=== PATIENT | male | born 1945 | race Caucasian/White ===

== ENCOUNTER 2017-07-29 05:33 | Inpatient (IN) | payer MEDICARE, BC ==
[2017-07-29] VITALS (18 sets, daily range): BP systolic 93–134; BP diastolic 55–92; PULSE 68–95; RESP 9–18; Ht 182.9 cm; Wt 94.6 kg
[~2017-07-29] VITALS: Ht 182.9 cm; Wt 94.6 kg
[~2017-07-29 05:33] MED LIST: ANTARA; DIAZ5TAB4; EZET10TA3; GABA600T; HYDR4TAB; METF500T4
[2017-07-29] MEDS ORDERED: BUPIVACAINE 0.5%/EPI (SDV) 30 ML INJ ONE (06:38)
[2017-07-29] MEDS ORDERED: SURGIFOAM POWDER 1 GM KIT ONE (06:38)
[2017-07-29] MEDS ORDERED: BUPIVACAINE 0.25% (MPF) 30 ML INJ ONE ×2 (06:38→10:47)
[2017-07-29] MEDS ORDERED: CA CHLORIDE 10% 10 ML SYRINGE ONE (06:39)
[2017-07-29] MEDS ORDERED: HEPARIN 1000 UNITS/ML 10 ML INJ ONE (06:39)
[2017-07-29] MEDS ORDERED: ROCURONIUM 50 MG INJ ONE (07:00)
--- NOTE | 2017-07-29 07:02 | HPN ---
Date/Time of Note Date/Time of Note DATE: 07/29/17 TIME: 07:01 Interval H&P Admission Note Pt. seen H&P reviewed: No system changes AUBRIE TINEO PA-C Jul 29, 2017 07:02
[2017-07-29] MEDS ORDERED: PROPOFOL 20 ML ONE (07:05)
[2017-07-29] MEDS ORDERED: MIDAZOLAM 1 MG/ML 2 ML INJ ONE (07:05)
[2017-07-29] MEDS ORDERED: LIDOCAINE 1% (MDV) 20 ML INJ ONE (07:08)
[2017-07-29] MEDS ORDERED: CEFAZOLIN 1 GM INJ ONE ×2 (07:11→07:42)
[2017-07-29] MEDS ORDERED: DIAZ10TA4 PO (07:15)
[2017-07-29] MEDS ORDERED: LYRI100 PO (07:16)
[2017-07-29] MEDS ORDERED: ASPI-664 PO (07:17)
[2017-07-29] MEDS ORDERED: FENO90CA PO (07:19)
[2017-07-29] MEDS ORDERED: AL HYDROX/MG HYDROX/SIMETH 30 ML CUP PO PRN (07:30)
[2017-07-29] MEDS ORDERED: ONDANSETRON 4 MG INJ IV PRN ×2 (07:30→12:00)
[2017-07-29] MEDS ORDERED: ZOLPIDEM 5 MG TAB PO PRN (07:30)
[2017-07-29] MEDS: CEFAZOLIN 1 GM/50 ML (PMX) 50 ML IVPB SCH ×2 (07:30→15:44)
[2017-07-29] MEDS ORDERED: CEPASTAT LOZENGE MT PRN (07:30)
[2017-07-29] MEDS ORDERED: DIPHENHYDRAMINE 50 MG INJ IV PRN (07:30)
[2017-07-29] MEDS ORDERED: NALOXONE (0.4 MG/ML) INJ IV PRN (07:30)
[2017-07-29] MEDS: THROMBIN 5000 UNIT VIAL ONE ×3 (08:02→10:06)
[2017-07-29] MEDS ORDERED: ONDANSETRON 4 MG INJ ONE ×2 (08:22→11:44)
[2017-07-29] MEDS ORDERED: FAMOTIDINE 20 MG INJ ONE (08:23)
--- NOTE | 2017-07-29 08:37 | RADRPT ---
PROCEDURE: XR lumbar spine CLINICAL INDICATION: Lumbar L2, S1 decompression TECHNIQUE: Single cross-table lateral spine obtained COMPARISON: None available FINDINGS: There are needles posteriorly at the L3, S1 levels. There is preservation of the lumbar lordosis. Ve rtebral bodies are grossly maintained in height. There are anterior osteophytes and disc space narro wing at L5-S1 with facet arthropathy seen at this level. IMPRESSION: Posterior needle localization at L3, S1. Lower lumbar spondylosis/degenerative enthesopathy seen at L5-S1. RPTAT: VV .Sekou Rodriguez MD, MD Date Time Electronically viewed and signed by .Sekou Rodriguez MD, on 07/29/2017 08:37 .O/
--- NOTE | 2017-07-29 08:43 | RADRPT ---
PROCEDURE: XR lumbar spine CLINICAL INDICATION: Lumbar L2, S1 decompression TECHNIQUE: Single cross-table lateral spine obtained COMPARISON: 07/29/2017 FINDINGS: There are now instruments posteriorly spanning the L3 through L5-S1 levels. Anterior osteophytes and disc space narrowing are redemonstrated at L5-S1 with facet arthropathy seen at this level. IMPRESSION: Interval posterior instrumentation at the L3 through L5-S1 levels. RPTAT: VV .Sekou Rodriguez MD, MD Date Time Electronically viewed and signed by .Sekou Rodriguez MD, on 07/29/2017 08:43 .O/
[2017-07-29] MEDS ORDERED: GELATIN SIZE 100 SPONGE ONE (09:54)
[2017-07-29] MEDS ORDERED: THROMBIN 5000 UNIT VIAL ONE (09:56)
[2017-07-29] MEDS ORDERED: FENTAnyl 50 MCG/ML VIAL ONE (10:47)
[2017-07-29] MEDS ORDERED: SUGAMMADEX SODIUM 200 MG/2 ML VIAL IV ONE (11:16)
--- NOTE | 2017-07-29 11:30 | SIPON ---
Date/Time of Note Date/Time of Note DATE: 07/29/17 TIME: 11:25 Operative Report Preoperative Diagnosis Cervical stenosis Postoperative Diagnosis Cervical stenosis Operation/Procedure Performed Cervical decompression Surgeon see signature line salon shampoo assistant Lore De Luna Anesthesia: general Estimated blood loss: 250 - 300 ml's Transfusion Required none Specimen spinous process Grafts/Implants none Complications none EVELINA SUTTON MD Jul 29, 2017 11:30
[2017-07-29] MEDS ORDERED: METOCLOPRAMIDE 10 MG INJ ONE (11:45)
[2017-07-29] MEDS: DOCUSATE SODIUM 100 MG CAP PO SCH ×2 (12:00→22:46)
[2017-07-29] MEDS: PREGABALIN 100 MG CAP PO SCH ×3 (12:00→22:46)
[2017-07-29] MEDS ORDERED: MEPERIDINE 25 MG INJ IV PRN (12:00)
[2017-07-29] MEDS ORDERED: hydrALAzine 20 MG INJ IV PRN (12:00)
[2017-07-29] MEDS ORDERED: PROCHLORPERAZINE 10 MG INJ IV PRN (12:00)
--- NOTE | 2017-07-29 12:02 | OPR ---
DATE OF OPERATION: 07/29/2017 PREOPERATIVE DIAGNOSIS: Lumbar spinal stenosis. POSTOPERATIVE DIAGNOSIS: Lumbar spinal stenosis. OPERATION PERFORMED: 1. Central decompressive laminectomy at L2 to 3, L3 to 4, L4 to 5 and L5 to S1 with decompression of L2, L3, L4, L5 and S1 nerve roots bilaterally. 2. Lateral localizing film x2. 3. Intraoperative neuromonitoring (3.5 hours). 4. Epidural injection via catheter. PRIMARY SURGEON: Mk Miranda MD. DRUG DEPARTMENT WORKER: Lore De Luna PA-C. NEED FOR OIL EXPERT: During this spinal surgical procedure, my dental assistant instructor was used to retract and protect the spinal nerves and dural sac. My dental assistant instructor also employed the suction catheters to evacuate blood from the surgical field to improve visualization of the neural structures. The dental assistant instructor was medically necessary to facilitate the completion of the surgery in a safe and expeditious manner. [facility] regulations, as well as hospital bylaws, preclude the use of non-licensed health care personnel, such as operating room technicians, to perform these functions. FINDINGS: Neuromonitoring at the start of the case revealed left L2 amplitude down 40%, right L2 amplitude down 20%, left L3 down 60%, right L3 down 20%, left L4 amplitude down 30%, right L4 normal, left L5 normal, right L5 down 30%, left S1 down 40%, right S1 normal. At the end of the case all nerve signals returned to normal. The patient had stenosis from L2 to the sacrum. The patient has facet disease most pronounced at L4 to 5. ESTIMATED BLOOD LOSS: 250 with 125 mL returned via Cell Saver. DRAINS: One. SPECIMENS: Spinous process. COMPLICATIONS OF PROCEDURES: None. ANESTHESIOLOGIST: Jaret Flood DO. TYPE OF ANESTHESIA: General. INDICATIONS FOR PROCEDURE: This 71-year-old gentleman with lumbosacral radiculopathy in the setting of stenosis from L2 to the sacrum. He failed nonoperative measures, therefore I recommended proceeding with above-mentioned surgery. Preoperatively, we discussed the risks, benefits and alternatives. He understood and wished to proceed. DESCRIPTION OF PROCEDURE IN DETAIL: The patient was identified in the preoperative holding area, given Ancef antibiotic, taken to the operating room, where he was successfully placed under general anesthesia. Neuromonitoring leads were placed, sequential compressive devices were applied. Greenfield catheter was introduced. Arterial line was placed. Neuromonitoring was utilized during the procedure for 3.5 hours to include SSEP, MEP and EMG. This was performed by Jack Erwin. Start time was 8:00 a.m. Closure time was 11:30 a.m. The patient was placed on the operating table in prone position over a Tyson frame. All bony prominences were well padded. The back was prepped and draped in the usual sterile fashion. Sheldon were placed, lateral films obtained to confirm the correct levels. I next injected Marcaine and epinephrine. Incision was then made from L2 to the sacrum. Incision was taken down to dorsal fascia, which was incised with Bovie cautery. I subperiosteally dissected the L2, L3, L4, L5, and S1 lamina bilaterally. I then took a lateral film to confirm the correct levels. Once this was confirmed, a central decompressive laminectomy was performed at L2 to 3, L3 to 4, L4 to 5 and L5 to S1. The central canal was decompressed, the lateral recess was decompressed. I then decompressed the L2, L3, L4, L5 and S1 nerve roots bilaterally for stenosis. Once this was done, I irrigated the wound. Hemostasis was achieved with bipolar cautery and Gelfoam, thrombin, Surgifoam and bone wax. A Valsalva maneuver was performed and there was no leak of CSF. At this point, all nerve signals returned to normal. I placed a subfascial drain. I placed an epidural catheter through which I injected 100 mcg of fentanyl mixed with 2 mL of Marcaine 0.25% preservative-free and the catheter was pulled. PPP and thrombin injected over the dura for hemostatic purposes. I then closed the deep fascia with #1 Stratafix suture. I closed subcutaneous tissue with 2-0 Vicryl stitch. A 4-0 Monocryl closure was then performed. Dermabond and sterile dressings were then applied. The patient was then awakened from anesthesia and taken to recovery room in stable condition. Lap, sponge and instrument counts were correct x2. There were no apparent complications during the procedure. The patient will be admitted to the ICU. He will undergo routine care to include pain control, neurovascular checks, antibiotics and physical therapy. Dictated By: MK JENKINS/DAVID Conf#: [id number] [facility]#: [id number] MTDD
[2017-07-29] MEDS: D5W-0.45 NACL + KCL 20 MEQ 1,000 ML IV SCH ×2 (12:27→17:04)
[2017-07-29] MEDS: HYDROmorphONE 0.5 MG/0.5 ML SYG IV PRN ×3 (12:29→14:42)
[2017-07-29] MEDS: HYDROmorphONE 0.2 MG/ML PCA IV SCH (15:00)
[2017-07-29] MEDS: DIAZEPAM 5 MG TAB PO PRN (16:30)
[2017-07-30] VITALS (18 sets, daily range): BP systolic 91–145; BP diastolic 61–79; PULSE 86–103; RESP 8–20
[2017-07-30] MEDS: DIAZEPAM 5 MG TAB PO PRN ×3 (00:35→23:17)
[2017-07-30] MEDS: CEFAZOLIN 1 GM/50 ML (PMX) 50 ML IVPB SCH (00:35)
[2017-07-30] MEDS: HYDROmorphONE 0.2 MG/ML PCA IV SCH (00:48)
[2017-07-30] MEDS: D5W-0.45 NACL + KCL 20 MEQ 1,000 ML IV SCH ×2 (03:02→09:42)
[2017-07-30 05:48] LABS: BASOPHIL # 0.1 10^3/ul (0.0-0.1); BASOPHILS % 0.9 % (0.0-2.0); EOSINOPHILS # 0.1 10^3/ul (0.0-0.5); EOSINOPHILS % 1.3 % (0.0-7.0); HEMATOCRIT 34.2 % (42.0-52.0); HEMOGLOBIN 11.8 g/dl (14.0-18.0); LYMPHOCYTES # 1.1 10^3/ul (0.8-2.9); LYMPHOCYTES % 12.9 % (15.0-51.0); MEAN CORPUSCULAR HEMOGLOBIN 31.6 pg (29.0-33.0); MEAN CORPUSCULAR HGB CONC 34.5 g/dl (32.0-37.0); MEAN CORPUSCULAR VOLUME 91.7 fl (82.0-101.0); MEAN PLATELET VOLUME 9.8 fl (7.4-10.4); MONOCYTE # 0.6 10^3/ul (0.3-0.9); MONOCYTES % 6.4 % (0.0-11.0); NEUTROPHIL # 6.8 10^3/ul (1.6-7.5); PLATELET COUNT 374 10^3/UL (140-415); RED BLOOD COUNT 3.73 10^6/ul (4.70-6.10); WHITE BLOOD COUNT 8.7 10^3/ul (4.8-10.8)
[2017-07-30 06:40] LABS: CREATININE 0.93 mg/dl (0.61-1.24); MAGNESIUM 1.5 mg/dl (1.7-2.5); POTASSIUM 4.1 mmol/L (3.5-5.1)
--- NOTE | 2017-07-30 08:09 | PN ---
Date/Time of Note Date/Time of Note DATE: 07/30/17 TIME: 08:05 Assessment/Plan Lines/Catheters IV Catheter Type (from Nrsg): Peripheral IV Greenfield in Place (from Nrsg): Yes Assessment/Plan Assessment/Plan POD #1 s/p lumbar decompression respiratory rate was low but sats acceptable and patient now alert - decrease PUBLIC SERVICE DIRECTOR back to 0.2mg dose PT today, ambulate routine care low mag will defer to PMD/Dr. Enriquez to replete will defer to PMD/Dr. Enriquez to transfer to /[facility] when appropriate Subjective 24 Hr Interval Summary c/o LBP Exam/Review of Systems Vital Signs Vitals Vital Signs Date Time Temp Pulse Resp B/P Pulse Ox O2 Delivery O2 Flow Rate FiO2 07/30/17 06:00 93 8 108/75 98 Nasal Cannula 2.0 07/30/17 04:00 98.3 Intake and Output 07/29/17 07/29/17 07/30/17 14:59 22:59 06:59 Intake Total 2325 ml 1730 ml 300 ml Output Total 1120 ml 790 ml 625 ml Balance 1205 ml 940 ml -325 ml Exam Free Text/Dictation AOx3 NVID denies CP, SOB Results Result Diagram: 07/30/17 0415 07/30/17 0415 AUBRIE TINEO PA-C Jul 30, 2017 08:09
[2017-07-30] MEDS: DOCUSATE SODIUM 100 MG CAP PO SCH ×2 (08:17→23:17)
[2017-07-30] MEDS: PREGABALIN 100 MG CAP PO SCH ×3 (08:18→23:17)
[2017-07-30] MEDS: OXYCODONE/ACETAMINOPHEN (10/325) TAB PO PRN ×3 (11:19→23:51)
[2017-07-30] MEDS: ACETAMINOPHEN 325 MG TAB PO PRN ×2 (12:39→23:20)
--- NOTE | 2017-07-30 13:26 | CONS ---
DATE OF ADMISSION: 07/29/2017 DATE OF CONSULTATION: 07/30/2017 POSTOPERATIVE MEDICAL CONSULTATION Thank you very much for allowing me to evaluate this 71-year-old male who underwent lumbar back surg elke yesterday. HISTORICAL EVENTS: As you well know, this patient has had severe pain involving his back and radicu lar left leg pain, and because of conservative therapy that did not allow improvement, this includin g epidurals and physical therapy, he elected to proceed with surgery. In the ICU, he is reasonably comfortable, notes modest back pain, without cough, wheezing, shortness of breath, nausea, vomiting, or abdominal pain. PAST MEDICAL HISTORY: 1. Left and right shoulder surgery, history of pacemaker for a slow heart rate. He states having h ad a treadmill test at least 5 years ago. 2. History of diabetes. 3. Hyperlipidemia. 4. Osteoarthritis. 5. History of enlarged liver. 6. History of neuropathy. MEDICATIONS: 1. Antara 130 mg per day. 2. Aspirin 81 mg per day. 3. Lyrica 50 mg t.i.d. 4. Metformin 500 mg 2 tablets b.i.d. 5. [place] one q.6h. 6. Valium 5 mg. 7. Zetia 10. SOCIAL HISTORY: Does not smoke, does not drink. FAMILY HISTORY: Positive for hypertension. PHYSICAL EXAMINATION: GENERAL: [place] male in no acute distress. VITAL SIGNS: BP 128/80, pulse 70, respirations are 20, he was afebrile. EYES: Extraocular muscles were full. NOSE, MOUTH, AND THROAT: Normal. NECK: Supple. There was no jugular venous distention, thyroid enlargement or adenopathy. Carotids 2+. LUNGS: Clear. HEART: Rhythm regular. ABDOMEN: Nontender. Liver and spleen were not palpable. No masses or tenderness were noted. EXTREMITIES: No edema. Calves nontender. NEUROLOGIC: No lateralizing motor weakness. IMPRESSION: 1. Stable postop lumbar back surgery. 2. History of diabetes. Sugars will be monitored and treated with AC short-acting insulin. 3. Hyperlipidemia. Fenofibrate will be continued. 4. We will follow daily for signs and symptoms of thromboembolic disease. Dictated By: FRANDY DE LOS SANTOS/DAVID Conf#: [id number] DID#: [id number] CC: EVELINA SUTTON MD;*End*
[2017-07-30] MEDS ORDERED: MAGNESIUM SULFATE 3 GM in DEXTROSE 5% 100 ML IVPB ONE (13:30)
[2017-07-30] MEDS ORDERED: GLUCOSE GEL 15 GRAM TUBE PO PRN ×2 (13:30)
[2017-07-30] MEDS ORDERED: DEXTROSE 50% 50 ML SYRINGE IV PRN ×2 (13:30)
[2017-07-30] MEDS ORDERED: GLUCOSE GEL 15 GRAM TUBE BUCCAL PRN (13:30)
[2017-07-30] MEDS ORDERED: DIAZEPAM 5 MG TAB PO PRN (13:30)
[2017-07-30] MEDS ORDERED: GLUCAGON 1 MG INJ IM PRN (13:30)
[2017-07-30] MEDS: FENOFIBRATE 145 MG TAB PO SCH (13:37)
[2017-07-30] MEDS: SOD CHLORIDE 0.9% 1,000 ML IV SCH (13:37)
[2017-07-30] MEDS: HYDROmorphONE 0.5 MG/0.5 ML SYG IV PRN (14:56)
[2017-07-30] MEDS: INSULIN ASPART [NOVOLOG] 3 ML PEN SC SCH (17:25)
[2017-07-30] MEDS: metFORMIN 500 MG TAB PO SCH (18:10)
[2017-07-31] MEDS: SOD CHLORIDE 0.9% 1,000 ML IV SCH ×2 (02:00→14:27)
[2017-07-31] MEDS: ACCU-CHEK XX SCH (02:00)
[2017-07-31] MEDS: OXYCODONE/ACETAMINOPHEN (10/325) TAB PO PRN ×2 (04:39→08:34)
[2017-07-31 05:17] LABS: BASOPHIL # 0.1 10^3/ul (0.0-0.1); BASOPHILS % 0.5 % (0.0-2.0); EOSINOPHILS # 0.1 10^3/ul (0.0-0.5); EOSINOPHILS % 0.9 % (0.0-7.0); HEMOGLOBIN 11.4 g/dl (14.0-18.0); LYMPHOCYTES # 1.6 10^3/ul (0.8-2.9); LYMPHOCYTES % 15.2 % (15.0-51.0); MEAN CORPUSCULAR HEMOGLOBIN 31.8 pg (29.0-33.0); MEAN CORPUSCULAR HGB CONC 34.5 g/dl (32.0-37.0); MEAN CORPUSCULAR VOLUME 92.2 fl (82.0-101.0); MEAN PLATELET VOLUME 9.7 fl (7.4-10.4); MONOCYTE # 0.9 10^3/ul (0.3-0.9); MONOCYTES % 8.1 % (0.0-11.0); NEUTROPHIL # 7.9 10^3/ul (1.6-7.5); NEUTROPHILS % 74.9 % (39.0-77.0); PLATELET COUNT 314 10^3/UL (140-415); RED BLOOD COUNT 3.58 10^6/ul (4.70-6.10); RED CELL DISTRIBUTION WIDTH 13.1 % (11.5-14.5); WHITE BLOOD COUNT 10.5 10^3/ul (4.8-10.8)
[2017-07-31 05:49] LABS: CALCIUM 9.7 mg/dl (8.4-10.2); CREATININE 0.87 mg/dl (0.61-1.24); MAGNESIUM 1.9 mg/dl (1.7-2.5); POTASSIUM 3.8 mmol/L (3.5-5.1)
[2017-07-31] MEDS: INSULIN ASPART [NOVOLOG] 3 ML PEN SC SCH ×3 (07:20→17:25)
--- NOTE | 2017-07-31 07:41 | CONS ---
Date/Time of Note Date/Time of Note DATE: 07/31/17 TIME: 07:38 Assessment/Plan Assessment/Plan Additional Assessment/Plan 1. Stable post op lumbar laminectomy. 2. AODM, sugar control is excellent. 3. Hyperlipidemia, rx continued 4. Pacemaker for "slow heart rhythm" 5. Labs rev, low mag corrected 6. Cont PT Consultation Date/Type/Reason Admit Date/Time Jul 29, 2017 at 05:33 Initial Consult Date Detailed Summary Respiratory: No cough, No shortness of breath Cardiovascular: No chest pain Gastrointestinal: no complaints Genitourinary: other (bell in place) Musculoskeletal: back pain (moderate without radicular leg pain) Exam/Review of Systems Vital Signs Vitals Vital Signs Date Time Temp Pulse Resp B/P Pulse Ox O2 Delivery O2 Flow Rate FiO2 07/30/17 19:40 98.2 91 17 127/66 97 Nasal Cannula 2.0 07/30/17 09:32 33 Intake and Output 07/30/17 07/30/17 07/31/17 15:00 23:00 07:00 Intake Total 1295.333 ml 470.667 ml 1140 ml Output Total 605 ml 250 ml 2575 ml Balance 690.333 ml 220.667 ml -1435 ml Exam Neck: No jvd Respiratory: clear to auscultation Cardiovascular: regular rate and rhythm Gastrointestinal: soft Extremities: No edema (adn no calf tend bilat) Results Result Diagram: 07/31/17 0442 07/31/17 0442 Results 24 hrs Laboratory Tests Test 07/30/17 14:10 07/30/17 17:46 07/31/17 04:42 Bedside Glucose 142 120 White Blood Count 10.5 # Red Blood Count 3.58 L Hemoglobin 11.4 L Hematocrit 33.0 L Mean Corpuscular Volume 92.2 Mean Corpuscular Hemoglobin 31.8 Mean Corpuscular Hemoglobin Concent 34.5 Red Cell Distribution Width 13.1 Platelet Count 314 Mean Platelet Volume 9.7 Neutrophils % 74.9 Lymphocytes % 15.2 Monocytes % 8.1 Eosinophils % 0.9 Basophils % 0.5 Nucleated Red Blood Cells % 0.0 Neutrophils # 7.9 H Lymphocytes # 1.6 Monocytes # 0.9 Eosinophils # 0.1 Basophils # 0.1 Nucleated Red Blood Cells # 0.0 Sodium Level 137 Potassium Level 3.8 Chloride Level 103 Carbon Dioxide Level 26 Anion Gap 12 Blood Urea Nitrogen 8 Creatinine 0.87 Glucose Level 107 Calcium Level 9.7 Phosphorus Level 3.3 Magnesium Level 1.9 Medications Medications Current Medications Oxycodone/ Acetaminophen (Endocet (10/ 325)) 1 tab Q4H PRN PO PAIN LEVEL 1-5 Last administered on 07/30/17 11:19; Admin Dose 1 TAB; Start 07/29/17 at 07:30 Oxycodone/ Acetaminophen (Endocet (10 325)) 2 tab Q4H PRN PO PAIN LEVEL 6-10 Last administered on 07/31/17 04:39; Admin Dose 2 TAB; Start 07/29/17 at 07:30 Hydromorphone HCl (Dilaudid) 0.2 mg Q1H PRN IV BREAKTHROUGH PAIN Last administered on 07/30/17 14:56; Admin Dose 0.2 MG; Start 07/29/17 at 07:30 Ondansetron HCl (Zofran Inj) 4 mg Q6H PRN IV NAUSEA AND/OR VOMITING; Start 07/29/17 at 07:30 Bisacodyl (Dulcolax Supp) 10 mg DAILY PRN [place] CONSTIPATION; Start 07/29/17 at 07 :30 Docusate Sodium (Colace) 100 mg BID PO Last administered on 07/30/17 23:17; Admin Dose 100 MG; Start 07/29/17 at 09:00 Al Hydrox/Mg Hydrox/Simethicone (Mag-Al Plus) 15 ml Q6H PRN PO CONSTIPATION/ DYSPEPSIA; Start 07/29/17 at 07:30 Acetaminophen (Tylenol Tab) 650 mg Q4H PRN PO WILSON OR TEMP GREATER THAN 101.3F Last administered on 07/30/17 23:20; Admin Dose 325 MG; Start 07/29/17 at 07:30 Diazepam (Valium) 5 mg TID PRN PO MUSCLE SPASMS Last administered on 07/30/17 23:17; Admin Dose 5 MG; Start 07/29/17 at 07:30 Phenol (Cepastat Lozenge) 1 lozenge PRN PRN MT SORE THROAT; Start 07/29/17 at 07:30 Diphenhydramine HCl (Benadryl) 25 mg Q6H PRN IV ITCHING; Start 07/29/17 at 07: 30 Naloxone HCl (Narcan) 0.2 mg Q2M PRN IV RR 8 BREATHS/MIN OR LESS; Start at 07:30 Hydromorphone HCl (Dilaudid LABOR RELATIONS ANALYST) LABOR RELATIONS ANALYST to be started in PACU Q4PCA IV Last administered on 07/30/17 00:48; Admin Dose 6 MG; Start 07/29/17 at 07:30 Miscellaneous Information 1. Hold LABOR RELATIONS ANALYST at 1,000... LABOR RELATIONS ANALYST IV ; Start 07/29/17 at 07: 30 Pregabalin (Lyrica) 100 mg TID PO Last administered on 07/30/17 23:17; Admin Dose 100 MG; Start 07/29/17 at 09:00 EZETIMIBE (Zetia) 10 mg DAILY PO ; Start 07/31/17 at 09:00 Fenofibrate (Tricor) 145 mg DAILY PO Last administered on 07/30/17 13:37; Admin Dose 145 MG; Start 07/30/17 at 13:30 Diagnostic Test (Pha) 1 ea 1 ea 02 XX ; Start 07/31/17 at 02:00 Sodium Chloride (NS) 1,000 ml @ 80 mls/hr [id number] IV Last administered on 07/30 13:37; Admin Dose 80 MLS/HR; Start 07/30/17 at 13:30 Miscellaneous Information 1 ea NOTE XX ; Start 07/30/17 at 13:30 Glucose (Glutose) 15 gm Q15M PRN PO DECREASED GLUCOSE; Start 07/30/17 at 13:30 Glucose (Glutose) 22.5 gm Q15M PRN PO DECREASED GLUCOSE; Start 07/30/17 at 13: 30 Dextrose (D50w Syringe) 25 ml Q15M PRN IV DECREASED GLUCOSE; Start 07/30/17 at 13:30 Dextrose (D50w Syringe) 50 ml Q15M PRN IV DECREASED GLUCOSE; Start 07/30/17 at 13:30 Glucagon (Glucagen) 1 mg Q15M PRN IM DECREASED GLUCOSE; Start 07/30/17 at 13:30 Glucose (Glutose) 15 gm Q15M PRN BUCCAL DECREASED GLUCOSE; Start 07/30/17 at 13 :30 FRANDY PEREYRA MD Jul 31, 2017 07:41
--- NOTE | 2017-07-31 08:03 | PN ---
Date/Time of Note Date/Time of Note DATE: 07/31/17 TIME: 07:58 Assessment/Plan Lines/Catheters IV Catheter Type (from Nrsg): Saline Lock Bell in Place (from Nrsg): Yes Assessment/Plan Assessment/Plan POD #2 s/p multilevel lumbar decompression percocet for pain control - please contact me if patient remains confused, would consider changing to norco 10/325 and decreasing valium dose to 5mg d/c bell today continue with PT anticipate D/C drain tomorrow Subjective 24 Hr Interval Summary pt c/o LBP, has not noticed change in leg sx yet Exam/Review of Systems Vital Signs Vitals Vital Signs Date Time Temp Pulse Resp B/P Pulse Ox O2 Delivery O2 Flow Rate FiO2 07/30/17 19:40 98.2 91 17 127/66 97 Nasal Cannula 2.0 07/30/17 09:32 33 Intake and Output 07/30/17 07/30/17 07/31/17 15:00 23:00 07:00 Intake Total 1295.333 ml 470.667 ml 1140 ml Output Total 605 ml 250 ml 2575 ml Balance 690.333 ml 220.667 ml -1435 ml Exam Free Text/Dictation patient is confused, asks same questions repeatedly, likely 2/2 recent valium dose sensation intact BLE quad, TA, EHL strength 4/5 bilat drain intact, output 125cc/24hr Results Result Diagram: 07/31/17 0442 07/31/17 044 AUBRIE TINEO PA-C Jul 31, 2017 08:03
[2017-07-31 08:25] VITALS: BP 122/71; RESP 18
[2017-07-31] MEDS: EZETIMIBE 10 MG TAB PO SCH (08:34)
[2017-07-31] MEDS: FENOFIBRATE 145 MG TAB PO SCH (08:34)
[2017-07-31] MEDS: PREGABALIN 100 MG CAP PO SCH ×3 (08:34→21:20)
[2017-07-31] MEDS: DOCUSATE SODIUM 100 MG CAP PO SCH ×2 (08:34→21:20)
[2017-07-31] MEDS: metFORMIN 500 MG TAB PO SCH ×2 (08:34→17:58)
[2017-07-31 14:57] VITALS: BP 156/69; RESP 20
[2017-07-31] MEDS ORDERED: DIAZEPAM 5 MG TAB PO PRN (16:30)
[2017-07-31] MEDS ORDERED: HYDROCODONE/APAP (10/325) TAB PO PRN (16:30)
[2017-07-31 19:37] LABS: ADD UMIC YES; UR ASCORBIC ACID 20 mg/dL (NEGATIVE); UR BILIRUBIN (Dip) NEGATIVE (NEGATIVE); UR BLOOD (Dip) 3+ mg/dL (NEGATIVE); UR CLARITY SLIGHTLY CLOUDY (CLEAR); UR COLOR YELLOW (YELLOW); UR GLUCOSE (Dip) NEGATIVE (NEGATIVE); UR KETONES (Dip) TRACE mg/dL (NEGATIVE); UR LEUKOCYTE ESTERASE (Dip) 1+ Leu/ul (NEGATIVE); UR NITRITE (Dip) NEGATIVE (NEGATIVE); UR RBC > 182 /HPF (0-5); UR SPECIFIC GRAVITY (Dip) 1.014 (1.003-1.030); UR TOTAL PROTEIN (Dip) 1+ mg/dl (NEGATIVE); UR UROBILINOGEN (Dip) NEGATIVE (NEGATIVE)
[2017-07-31 19:45] VITALS: BP 140/81; RESP 20
[2017-07-31 20:00] VITALS: PULSE 84
[2017-07-31] MEDS: BISACODYL 10 MG SUPP PR PRN (21:20)
[2017-07-31] MEDS: HYDROCODONE/APAP (10/325) TAB PO PRN (21:24)
[2017-08-01] MEDS: ACCU-CHEK XX SCH (02:00)
[2017-08-01] MEDS: SOD CHLORIDE 0.9% 1,000 ML IV SCH ×3 (03:00→23:49)
[2017-08-01] MEDS: BISACODYL 10 MG SUPP PR PRN (03:09)
[2017-08-01] MEDS: HYDROCODONE/APAP (10/325) TAB PO PRN ×2 (05:44→12:53)
[2017-08-01 05:48] VITALS: BP 149/68; PULSE 92; RESP 17
[2017-08-01 06:14] LABS: BASOPHILS % 0.3 % (0.0-2.0); EOSINOPHILS # 0.1 10^3/ul (0.0-0.5); EOSINOPHILS % 0.6 % (0.0-7.0); HEMATOCRIT 33.9 % (42.0-52.0); HEMOGLOBIN 11.8 g/dl (14.0-18.0); LYMPHOCYTES # 1.9 10^3/ul (0.8-2.9); LYMPHOCYTES % 15.5 % (15.0-51.0); MEAN CORPUSCULAR HEMOGLOBIN 31.7 pg (29.0-33.0); MEAN CORPUSCULAR HGB CONC 34.8 g/dl (32.0-37.0); MEAN CORPUSCULAR VOLUME 91.1 fl (82.0-101.0); MEAN PLATELET VOLUME 10.1 fl (7.4-10.4); MONOCYTE # 0.9 10^3/ul (0.3-0.9); MONOCYTES % 7.3 % (0.0-11.0); NEUTROPHIL # 9.1 10^3/ul (1.6-7.5); NEUTROPHILS % 75.8 % (39.0-77.0); PLATELET COUNT 386 10^3/UL (140-415); RED BLOOD COUNT 3.72 10^6/ul (4.70-6.10)
[2017-08-01 06:44] LABS: CREATININE 0.88 mg/dl (0.61-1.24); MAGNESIUM 1.7 mg/dl (1.7-2.5); POTASSIUM 3.4 mmol/L (3.5-5.1)
[2017-08-01 07:20] VITALS: BP 131/68; PULSE 89; RESP 18
[2017-08-01] MEDS: PREGABALIN 100 MG CAP PO SCH ×3 (07:54→20:44)
[2017-08-01] MEDS: metFORMIN 500 MG TAB PO SCH ×2 (07:54→17:50)
[2017-08-01] MEDS: EZETIMIBE 10 MG TAB PO SCH (08:42)
[2017-08-01] MEDS: DOCUSATE SODIUM 100 MG CAP PO SCH ×2 (08:42→20:45)
[2017-08-01] MEDS: INSULIN ASPART [NOVOLOG] 3 ML PEN SC SCH ×3 (08:43→17:25)
[2017-08-01] MEDS: FENOFIBRATE 145 MG TAB PO SCH (08:43)
--- NOTE | 2017-08-01 10:24 | CONS ---
Date/Time of Note Date/Time of Note DATE: 08/01/17 TIME: 10:16 Assessment/Plan Assessment/Plan Chief Complaint/Hosp Course 1. This patient is 3 days postop a lumbar spine decompressive surgery. 2. urinary retention. The patient had to have a Greenfield catheter replaced last evening because of urinary retention. 800 cc of urine was obtained. I will order a urology consultation. 3 type 2 diabetes mellitus 4. cardiac pacemaker 5. This patient can be transferred to the acute rehab unit if cleared by orthopedics. Problems: Consultation Date/Type/Reason Admit Date/Time Jul 29, 2017 at 05:33 Initial Consult Date Type of Consultation: Medicine 24 HR Interval Summary Constitutional: no complaints Exam/Review of Systems Vital Signs Vitals Vital Signs Date Time Temp Pulse Resp B/P Pulse Ox O2 Delivery O2 Flow Rate FiO2 08/01/17 07:20 97.4 89 18 131/68 98 89 89 08/01/17 05:48 Room Air 07/30/17 19:40 2.0 07/30/17 09:32 33 Intake and Output 07/31/17 07/31/17 08/01/17 15:00 23:00 07:00 Intake Total 220 ml Output Total 465 ml 30 ml Balance -245 ml -30 ml Exam Constitutional: alert, frail, oriented Respiratory: clear to auscultation Gastrointestinal: non-tender, soft Musculoskeletal: nl extremities to inspection Results Result Diagram: 08/01/17 0433 08/01/17 0433 Results 24 hrs Laboratory Tests Test 07/31/17 12:29 07/31/17 17:35 07/31/17 19:00 07/31/17 20:27 Bedside Glucose 102 119 132 Urine Color YELLOW Urine Clarity SLIGHTLY CLOUDY A Urine pH 6.0 Urine Specific [place] 1.014 Urine Ketones TRACE A Urine Nitrite NEGATIVE Urine Bilirubin NEGATIVE Urine Urobilinogen NEGATIVE Urine Leukocyte Esterase 1+ H Urine Microscopic RBC > 182 H Urine Microscopic WBC 37 H Urine Hemoglobin 3+ H Urine Glucose NEGATIVE Urine Total Protein 1+ H Test 08/01/17 04:33 08/01/17 08:43 White Blood Count 12.0 H Red Blood Count 3.72 L Hemoglobin 11.8 L Hematocrit 33.9 L Mean Corpuscular Volume 91.1 Mean Corpuscular Hemoglobin 31.7 Mean Corpuscular Hemoglobin Concent 34.8 Red Cell Distribution Width 13.0 Platelet Count 386 # Mean Platelet Volume 10.1 Neutrophils % 75.8 Lymphocytes % 15.5 Monocytes % 7.3 Eosinophils % 0.6 Basophils % 0.3 Nucleated Red Blood Cells % 0.0 Neutrophils # 9.1 H Lymphocytes # 1.9 Monocytes # 0.9 Eosinophils # 0.1 Basophils # 0.0 Nucleated Red Blood Cells # 0.0 Sodium Level 134 L Potassium Level 3.4 L Chloride Level 97 Carbon Dioxide Level 28 Anion Gap 12 Blood Urea Nitrogen 12 Creatinine 0.88 Glucose Level 99 Calcium Level 10.0 Magnesium Level 1.7 Bedside Glucose 133 Medications Medications Current Medications Hydromorphone HCl (Dilaudid) 0.2 mg Q1H PRN IV BREAKTHROUGH PAIN Last administered on 07/30/17 14:56; Admin Dose 0.2 MG; Start 07/29/17 at 07:30 Ondansetron HCl (Zofran Inj) 4 mg Q6H PRN IV NAUSEA AND/OR VOMITING; Start 07/29/17 at 07:30 Bisacodyl (Dulcolax Supp) 10 mg DAILY PRN [place] CONSTIPATION Last administered on 08/01/17 03:09; Admin Dose 10 MG; Start 07/29/17 at 07:30 Docusate Sodium (Colace) 100 mg BID PO Last administered on 08/01/17 08:42; Admin Dose 100 MG; Start 07/29/17 at 09:00 Al Hydrox/Mg Hydrox/Simethicone (Mag-Al Plus) 15 ml Q6H PRN PO CONSTIPATION/ DYSPEPSIA; Start 07/29/17 at 07:30 Acetaminophen (Tylenol Tab) 650 mg Q4H PRN PO [place] OR TEMP GREATER THAN 101.3F Last administered on 07/30/17 23:20; Admin Dose 325 MG; Start 07/29/17 at 07:30 Phenol (Cepastat Lozenge) 1 lozenge PRN PRN [place] SORE THROAT; Start 07/29/17 at 07:30 Diphenhydramine HCl (Benadryl) 25 mg Q6H PRN IV ITCHING; Start 07/29/17 at 07: 30 Naloxone HCl (Narcan) 0.2 mg Q2M PRN IV RR 8 BREATHS/MIN OR LESS; Start at 07:30 Miscellaneous Information 1. Hold SEALING MACHINE OPERATOR at 1,000... SEALING MACHINE OPERATOR IV ; Start 07/29/17 at 07: 30 Pregabalin (Lyrica) 100 mg TID PO Last administered on 08/01/17 07:54; Admin Dose 100 MG; Start 07/29/17 at 09:00 EZETIMIBE (Zetia) 10 mg DAILY PO Last administered on 08/01/17 08:42; Admin Dose 10 MG; Start 07/31/17 at 09:00 Fenofibrate (Tricor) 145 mg DAILY PO Last administered on 08/01/17 08:43; Admin Dose 145 MG; Start 07/30/17 at 13:30 Diagnostic Test (Pha) 1 ea 1 ea 02 XX ; Start 07/31/17 at 02:00 Sodium Chloride (NS) 1,000 ml @ 80 mls/hr [id number] IV Last administered on 07/31 14:27; Admin Dose 80 MLS/HR; Start 07/30/17 at 13:30 Miscellaneous Information 1 ea NOTE XX ; Start 07/30/17 at 13:30 Glucose (Glutose) 15 gm Q15M PRN PO DECREASED GLUCOSE; Start 07/30/17 at 13:30 Glucose (Glutose) 22.5 gm Q15M PRN PO DECREASED GLUCOSE; Start 07/30/17 at 13: 30 Dextrose (D50w Syringe) 25 ml Q15M PRN IV DECREASED GLUCOSE; Start 07/30/17 at 13:30 Dextrose (D50w Syringe) 50 ml Q15M PRN IV DECREASED GLUCOSE; Start 07/30/17 at 13:30 Glucagon (Glucagen) 1 mg Q15M PRN IM DECREASED GLUCOSE; Start 07/30/17 at 13:30 Glucose (Glutose) 15 gm Q15M PRN BUCCAL DECREASED GLUCOSE; Start 07/30/17 at 13 :30 Diazepam (Valium) 2.5 mg TID PRN PO MUSCLE SPASMS Last administered on 09:41; Admin Dose 2.5 MG; Start 07/31/17 at 16:30 Acetaminophen/ Hydrocodone Bitart ([place] (10/325)) 1 tab Q6H PRN PO PAIN Last administered on 08/01/17 05:44; Admin Dose 1 TAB; Start 07/31/17 at 16:30 Acetaminophen/ Hydrocodone Bitart ([place] (10/325)) 2 tab Q6H PRN PO PAIN ; Start 07/31/17 at 16:30 Potassium Chloride (Klor-Con 10) 30 meq ONCE ONCE PO ; Start 08/01/17 at 10:30 ; Stop 08/01/17 at 10:31; Status UNGONZALO DEE MD Aug 01, 2017 10:24
[2017-08-01] MEDS ORDERED: POTASSIUM CHLORIDE (SR) 10 MEQ TAB PO ONE (11:00)
--- NOTE | 2017-08-01 11:43 | DS ---
Date/Time of Note Date/Time of Note DATE: 08/01/17 TIME: 11:42 Discharge Summary Admission/Discharge Info Admit Date/Time Jul 29, 2017 at 05:33 Discharge Date/Time August 01 Discharge Diagnosis Status post lumbar decompression Urinary retention Confusion Patient Condition: Fair Procedures Lumbar decompression Hospital Course Patient was admitted to the ICU after undergoing the above surgery. He subsequently transferred to the orthopedic sadler. He had the Greenfield catheter removed and reinserted revealing urinary retention. He had some confusion and medication dosages were decreased. Ultimately he was deemed stable for transfer to acute rehab. Home Meds Reported Medications Fenofibrate, Micronized* (Antara*) 90 Mg Capsule, 130 MG PO DAILY, CAP 07/29/17 Aspirin* (Aspirin* EC) 81 Mg Tablet.dr, 81 MG PO DAILY, TAB 07/29/17 Pregabalin* (Lyrica*) 100 Mg Capsule, 100 MG PO TID, CAP 07/29/17 Diazepam* (Diazepam*) 10 Mg Tablet, 10 MG PO TID, TAB 07/29/17 Ezetimibe* (Zetia*) 10 Mg Tablet 02/27/10 Metformin* (Glucophage*) 500 Mg Tab, BID 02/27/10 Discontinued Reported Medications [Antara] TAB No Conflict Check 02/27/10 Diazepam* (Diazepam*) 5 Mg Tablet 02/27/10 Gabapentin* (Neurontin*) 600 Mg Tablet 02/27/10 Hydromorphone Hcl* (Hydromorphone Hcl*) 4 Mg Tablet 02/27/10 Primary Care Provider Not On Staff Doctor Pending Labs Laboratory Tests Test 07/31/17 12:29 07/31/17 17:35 07/31/17 19:00 07/31/17 20:27 Bedside Glucose 102mg/dL (70-220) 119mg/dL (70-220) 132mg/dL (70-220) Urine Color YELLOW (YELLOW) Urine Clarity SLIGHTLY CLOUDY (CLEAR) Urine pH 6.0 (5.0-9.0) Urine Specific [place] 1.014 (1.003-1.030) Urine Ketones TRACEmg/dL (NEGATIVE) Urine Nitrite NEGATIVEmg/dL (NEGATIVE) Urine Bilirubin NEGATIVEmg/dL (NEGATIVE) Urine Urobilinogen NEGATIVEmg/dL (NEGATIVE) Urine Leukocyte Esterase 1+Linette/ul (NEGATIVE) Urine Microscopic RBC > 182/HPF (0-5) Urine Microscopic WBC 37/HPF (0-5) Urine Hemoglobin 3+mg/dL (NEGATIVE) Urine Glucose NEGATIVEmg/dL (NEGATIVE) Urine Total Protein 1+mg/dl (NEGATIVE) Test 08/01/17 04:33 08/01/17 08:43 White Blood Count 12.010^3/ul (4.8-10.8) Red Blood Count 3.7210^6/ul (4.70-6.10) Hemoglobin 11.8g/dl (14.0-18.0) Hematocrit 33.9% (42.0-52.0) Mean Corpuscular Volume 91.1fl (82.0-101.0) Mean Corpuscular Hemoglobin 31.7pg (29.0-33.0) Mean Corpuscular Hemoglobin Concent 34.8g/dl (32.0-37.0) Red Cell Distribution Width 13.0% (11.5-14.5) Platelet Count 62073^3/UL (140-415) Mean Platelet Volume 10.1fl (7.4-10.4) Neutrophils % 75.8% (39.0-77.0) Lymphocytes % 15.5% (15.0-51.0) Monocytes % 7.3% (0.0-11.0) Eosinophils % 0.6% (0.0-7.0) Basophils % 0.3% (0.0-2.0) Nucleated Red Blood Cells % 0.0/100WBC (0.0-0.0) Neutrophils # 9.110^3/ul (1.6-7.5) Lymphocytes # 1.910^3/ul (0.8-2.9) Monocytes # 0.910^3/ul (0.3-0.9) Eosinophils # 0.110^3/ul (0.0-0.5) Basophils # 0.010^3/ul (0.0-0.1) Nucleated Red Blood Cells # 0.010^3/ul (0.0-0.0) Sodium Level 134mmol/L (135-144) Potassium Level 3.4mmol/L (3.5-5.1) Chloride Level 97mmol/L (97-110) Carbon Dioxide Level 28mmol/L (21-31) Anion Gap 12 (8-16) Blood Urea Nitrogen 12mg/dl (7-20) Creatinine 0.88mg/dl (0.61-1.24) Glucose Level 99mg/dl (70-220) Calcium Level 10.0mg/dl (8.4-10.2) Magnesium Level 1.7mg/dl (1.7-2.5) Bedside Glucose 133mg/dL (70-220) Microbiology Date/Time Source Procedure Growth Status 07/31/17 19:00 Catheter Urine Urine Culture - Preliminary NO GROWTH AFTER 24 HOURS Resulted EVELINA SUTTON MD Aug 01, 2017 11:43
--- NOTE | 2017-08-01 12:40 | CONS ---
Date/Time of Note Date/Time of Note DATE: 08/01/17 TIME: 12:28 Assessment/Plan Assessment/Plan Chief Complaint/Hosp Course 71-year-old male underwent lumbar laminectomy 3 days ago. Postop he had urinary retention and when the catheter was removed he had 800 mL inside his bladder. He does have a mild history of lower urinary tract symptoms. His PSA has been normal. Rectal examination revealed soft prostate and mildly enlarged. For now we will keep the Greenfield catheter in until tomorrow morning. Put him on Flomax and also low dose of Urecholine. Remove the Greenfield catheter tomorrow morning and check his voiding and his postvoid residual and do straight cath for a postvoid residual of over 300 mL or bladder volume of over 500 mL if he does not void. Problems: Consultation Date/Type/Reason Admit Date/Time Jul 29, 2017 at 05:33 Date of Consultation: Aug 01, 2017 Type of Consultation: Urology Reason for Consultation Urinary retention Referring Provider: GONZALO VALLEJO MD Hx of Present Illness 71-year-old male underwent lumbar laminectomy 3 days earlier. He had an indwelling Greenfield catheter that was removed yesterday. The patient was not able to urinate after that and when the bladder scan showed that he had over 500 mL a new catheter was put in and 800 mL were drained. The Greenfield catheter was left in place and a urology consultation was requested. The patient was seen in his room with his at bedside. The patient is a little bit confused. Prior to his present hospitalization he usually have nocturia about 2-3 times, daytime he voids every 2-3 hours, his urinary stream is slow mostly during the day. He denies any history of gross hematuria. He has not been on any prostate medications. He has a primary care physician who did the PSA on him and according to the patient and his the PSA has been normal. Constitutional: no complaints Eyes: no complaints ENT: no complaints Respiratory: no complaints Cardiovascular: No chest pain Gastrointestinal: no complaints, No nausea, No vomiting Genitourinary: hematuria (In the catheter) Skin: no complaints Neurologic: confusion (Mild, he told me he is 61 years old instead of 71) Endocrine: no complaints Lymphatic: no complaints Psychological: confusion Past Medical History Medical History: diabetes, high cholesterol (Dyslipidemia), other ( Osteoarthritis, pacemaker) Past Surgical History Past Surgical Hx: other (Pacemaker, left and right shoulder surgery) Family History Significant Family History: no pertinent family hx Social History Alcohol Use: occasionally Smoking Status: Current every day smoker Exam/Review of Systems Vital Signs Vitals Vital Signs Date Time Temp Pulse Resp B/P Pulse Ox O2 Delivery O2 Flow Rate FiO2 08/01/17 07:20 97.4 89 18 131/68 98 89 89 08/01/17 05:48 Room Air 07/30/17 19:40 2.0 07/30/17 09:32 33 Intake and Output 07/31/17 07/31/17 08/01/17 15:00 23:00 07:00 Intake Total 220 ml Output Total 465 ml 30 ml Balance -245 ml -30 ml Exam Constitutional: alert Psych: confusion Head: normocephalic Eyes: nl conjunctiva ENMT: nl external ears & nose Neck: supple Respiratory: normal air movement Cardiovascular: No jugular venous distention (JVD) Gastrointestinal: non-tender, soft Genitourinary - Male: nl penis, nl scrotum, other (Greenfiedl catheter in place with pinkish urine, rectal examination revealed soft prostate and mildly enlarged) Musculoskeletal: nl extremities to inspection Neurological: confused (Mild) Skin: nl turgor Results Result Diagram: 08/01/17 0433 08/01/17 0433 Results 24 hrs Laboratory Tests Test 07/31/17 12:29 07/31/17 17:35 07/31/17 19:00 07/31/17 20:27 Bedside Glucose 102 119 132 Urine Color YELLOW Urine Clarity SLIGHTLY CLOUDY A Urine pH 6.0 Urine Specific [place] 1.014 Urine Ketones TRACE A Urine Nitrite NEGATIVE Urine Bilirubin NEGATIVE Urine Urobilinogen NEGATIVE Urine Leukocyte Esterase 1+ H Urine Microscopic RBC > 182 H Urine Microscopic WBC 37 H Urine Hemoglobin 3+ H Urine Glucose NEGATIVE Urine Total Protein 1+ H Test 08/01/17 04:33 08/01/17 08:43 08/01/17 12:17 White Blood Count 12.0 H Red Blood Count 3.72 L Hemoglobin 11.8 L Hematocrit 33.9 L Mean Corpuscular Volume 91.1 Mean Corpuscular Hemoglobin 31.7 Mean Corpuscular Hemoglobin Concent 34.8 Red Cell Distribution Width 13.0 Platelet Count 386 # Mean Platelet Volume 10.1 Neutrophils % 75.8 Lymphocytes % 15.5 Monocytes % 7.3 Eosinophils % 0.6 Basophils % 0.3 Nucleated Red Blood Cells % 0.0 Neutrophils # 9.1 H Lymphocytes # 1.9 Monocytes # 0.9 Eosinophils # 0.1 Basophils # 0.0 Nucleated Red Blood Cells # 0.0 Sodium Level 134 L Potassium Level 3.4 L Chloride Level 97 Carbon Dioxide Level 28 Anion Gap 12 Blood Urea Nitrogen 12 Creatinine 0.88 Glucose Level 99 Calcium Level 10.0 Magnesium Level 1.7 Bedside Glucose 133 104 Medications Medications Current Medications Hydromorphone HCl (Dilaudid) 0.2 mg Q1H PRN IV BREAKTHROUGH PAIN Last administered on 07/30/17 14:56; Admin Dose 0.2 MG; Start 07/29/17 at 07:30 Ondansetron HCl (Zofran Inj) 4 mg Q6H PRN IV NAUSEA AND/OR VOMITING; Start 07/29/17 at 07:30 Bisacodyl (Dulcolax Supp) 10 mg DAILY PRN [place] CONSTIPATION Last administered on 08/01/17 03:09; Admin Dose 10 MG; Start 07/29/17 at 07:30 Docusate Sodium (Colace) 100 mg BID PO Last administered on 08/01/17 08:42; Admin Dose 100 MG; Start 07/29/17 at 09:00 Al Hydrox/Mg Hydrox/Simethicone (Mag-Al Plus) 15 ml Q6H PRN PO CONSTIPATION/ DYSPEPSIA; Start 07/29/17 at 07:30 Acetaminophen (Tylenol Tab) 650 mg Q4H PRN PO WILSON OR TEMP GREATER THAN 101.3F Last administered on 07/30/17 23:20; Admin Dose 325 MG; Start 07/29/17 at 07:30 Phenol (Cepastat Lozenge) 1 lozenge PRN PRN [place] SORE THROAT; Start 07/29/17 at 07:30 Diphenhydramine HCl (Benadryl) 25 mg Q6H PRN IV ITCHING; Start 07/29/17 at 07: 30 Naloxone HCl (Narcan) 0.2 mg Q2M PRN IV RR 8 BREATHS/MIN OR LESS; Start at 07:30 Miscellaneous Information 1. Hold PUBLICITY AGENT at 1,000... PUBLICITY AGENT IV ; Start 07/29/17 at 07: 30 Pregabalin (Lyrica) 100 mg TID PO Last administered on 08/01/17 07:54; Admin Dose 100 MG; Start 07/29/17 at 09:00 EZETIMIBE (Zetia) 10 mg DAILY PO Last administered on 08/01/17 08:42; Admin Dose 10 MG; Start 07/31/17 at 09:00 Fenofibrate (Tricor) 145 mg DAILY PO Last administered on 08/01/17 08:43; Admin Dose 145 MG; Start 07/30/17 at 13:30 Diagnostic Test (Pha) 1 ea 1 ea 02 XX ; Start 07/31/17 at 02:00 Sodium Chloride (NS) 1,000 ml @ 80 mls/hr [id number] IV Last administered on 07/31 14:27; Admin Dose 80 MLS/HR; Start 07/30/17 at 13:30 Miscellaneous Information 1 ea NOTE XX ; Start 07/30/17 at 13:30 Glucose (Glutose) 15 gm Q15M PRN PO DECREASED GLUCOSE; Start 07/30/17 at 13:30 Glucose (Glutose) 22.5 gm Q15M PRN PO DECREASED GLUCOSE; Start 07/30/17 at 13: 30 Dextrose (D50w Syringe) 25 ml Q15M PRN IV DECREASED GLUCOSE; Start 07/30/17 at 13:30 Dextrose (D50w Syringe) 50 ml Q15M PRN IV DECREASED GLUCOSE; Start 07/30/17 at 13:30 Glucagon (Glucagen) 1 mg Q15M PRN IM DECREASED GLUCOSE; Start 07/30/17 at 13:30 Glucose (Glutose) 15 gm Q15M PRN BUCCAL DECREASED GLUCOSE; Start 07/30/17 at 13 :30 Diazepam (Valium) 2.5 mg TID PRN PO MUSCLE SPASMS Last administered on 09:41; Admin Dose 2.5 MG; Start 07/31/17 at 16:30 Acetaminophen/ Hydrocodone Bitart ([place] (10/325)) 1 tab Q6H PRN PO PAIN Last administered on 08/01/17 05:44; Admin Dose 1 TAB; Start 07/31/17 at 16:30 Acetaminophen/ Hydrocodone Bitart ([place] (10/325)) 2 tab Q6H PRN PO PAIN ; Start 07/31/17 at 16:30 TRITSON HOLLIS MD Aug 01, 2017 12:39
[2017-08-01 14:33] VITALS: BP 127/86; RESP 20
[2017-08-01] MEDS: BETHANECHOL 10 MG TAB PO SCH ×2 (17:50→20:45)
[2017-08-01 20:46] VITALS: BP 138/78; PULSE 95; RESP 17
[2017-08-01] MEDS ORDERED: TAMSULOSIN (SR) 0.4 MG CAP PO SCH (21:00)
[2017-08-01 21:45] VITALS: BP 119/71; RESP 18
[2017-08-01] MEDS ORDERED: LEVOFLOXACIN 500 MG TAB PO ONE (23:00)
[2017-08-02] MEDS ORDERED: traZODone 50 MG TAB PO ONE (02:00)
[2017-08-02] MEDS: ACCU-CHEK XX SCH (02:00)
[2017-08-02] MEDS: SOD CHLORIDE 0.9% 1,000 ML IV SCH ×2 (04:00→16:30)
[2017-08-02] MEDS: LEVOFLOXACIN 500 MG TAB PO SCH (06:18)
[2017-08-02 08:01] LABS: ADD UMIC YES; UR ASCORBIC ACID NEGATIVE (NEGATIVE); UR BACTERIA FEW /HPF (NONE SEEN); UR BILIRUBIN (Dip) NEGATIVE (NEGATIVE); UR BLOOD (Dip) 3+ mg/dL (NEGATIVE); UR CLARITY CLOUDY (CLEAR); UR COLOR RED (YELLOW); UR GLUCOSE (Dip) NEGATIVE (NEGATIVE); UR KETONES (Dip) NEGATIVE (NEGATIVE); UR LEUKOCYTE ESTERASE (Dip) NEGATIVE Leu/ul (NEGATIVE); UR NITRITE (Dip) NEGATIVE (NEGATIVE); UR RBC > 182 /HPF (0-5); UR SPECIFIC GRAVITY (Dip) 1.015 (1.003-1.030); UR TOTAL PROTEIN (Dip) 2+ mg/dl (NEGATIVE); UR UROBILINOGEN (Dip) NEGATIVE (NEGATIVE)
[2017-08-02 08:20] VITALS: BP 144/73; RESP 18
[2017-08-02] MEDS: INSULIN ASPART [NOVOLOG] 3 ML PEN SC SCH ×3 (08:55→17:25)
[2017-08-02] MEDS: EZETIMIBE 10 MG TAB PO SCH (09:00)
[2017-08-02] MEDS: BETHANECHOL 10 MG TAB PO SCH ×3 (09:00→21:42)
[2017-08-02] MEDS: FENOFIBRATE 145 MG TAB PO SCH (09:00)
[2017-08-02] MEDS: PREGABALIN 100 MG CAP PO SCH ×3 (09:00→21:42)
[2017-08-02] MEDS: metFORMIN 500 MG TAB PO SCH ×2 (09:00→17:48)
[2017-08-02] MEDS: DOCUSATE SODIUM 100 MG CAP PO SCH ×2 (09:00→21:41)
[2017-08-02 14:29] VITALS: BP 136/78; RESP 20
--- NOTE | 2017-08-02 14:41 | CONS ---
Date/Time of Note Date/Time of Note DATE: 08/02/17 TIME: 14:37 Consult Date/Type/Reason Admit Date/Time Jul 29, 2017 at 05:33 Initial Consult Date 08/01/17 Type of Consultation: Urology Reason for Consultation Urinary retention Ordering Provider: GONZALO VALLEJO MD Subjective Patient is confused and has a sitter in his room watching him. He did urinate a little bit when he had a bowel movement but needed straight catheterization after the catheter was removed. Objective Vital Signs Date Time Temp Pulse Resp B/P Pulse Ox O2 Delivery O2 Flow Rate FiO2 08/02/17 14:29 97.8 82 20 136/78 97 08/01/17 20:46 Room Air 07/30/17 19:40 2.0 07/30/17 09:32 33 Intake and Output 08/01/17 08/01/17 08/02/17 15:00 23:00 07:00 Intake Total 1000 ml 600 ml 600 ml Output Total 2300 ml 1210 ml 655 ml Balance -1300 ml -610 ml -55 ml Exam Patient is sleeping, appears to be comfortable, sitter and nurse tell me he is confused, his also told me yesterday that he was very confused and disoriented. Results/Medications Result Diagram: 08/01/17 0433 08/01/17 0433 Results 24 hrs Laboratory Tests Test 08/01/17 17:38 08/01/17 20:49 08/02/17 01:20 08/02/17 08:29 Bedside Glucose 112 128 111 Urine Color RED Urine Clarity CLOUDY A Urine pH 7.0 Urine Specific [place] 1.015 Urine Ketones NEGATIVE Urine Nitrite NEGATIVE Urine Bilirubin NEGATIVE Urine Urobilinogen NEGATIVE Urine Leukocyte Esterase NEGATIVE Urine Microscopic RBC > 182 H Urine Microscopic WBC > 182 H Urine Bacteria FEW A Urine Hemoglobin 3+ H Urine Glucose NEGATIVE Urine Total Protein 2+ H Test 08/02/17 12:27 Bedside Glucose 120 Medications Current Medications Hydromorphone HCl (Dilaudid) 0.2 mg Q1H PRN IV BREAKTHROUGH PAIN Last administered on 07/30/17t 14:56; Admin Dose 0.2 MG; Start 07/29/17 at 07:30 Ondansetron HCl (Zofran Inj) 4 mg Q6H PRN IV NAUSEA AND/OR VOMITING; Start 07/29/17 at 07:30 Bisacodyl (Dulcolax Supp) 10 mg DAILY PRN [place] CONSTIPATION Last administered on 08/01/17 03:09; Admin Dose 10 MG; Start 07/29/17 at 07:30 Docusate Sodium (Colace) 100 mg BID PO Last administered on 08/02/17 09:00; Admin Dose 100 MG; Start 07/29/17 at 09:00 Al Hydrox/Mg Hydrox/Simethicone (Mag-Al Plus) 15 ml Q6H PRN PO CONSTIPATION/ DYSPEPSIA; Start 07/29/17 at 07:30 Acetaminophen (Tylenol Tab) 650 mg Q4H PRN PO WILSON OR TEMP GREATER THAN 101.3F Last administered on 07/30/17 23:20; Admin Dose 325 MG; Start 07/29/17 at 07:30 Phenol (Cepastat Lozenge) 1 lozenge PRN PRN [place] SORE THROAT; Start 07/29/17 at 07:30 Diphenhydramine HCl (Benadryl) 25 mg Q6H PRN IV ITCHING; Start 07/29/17 at 07: 30 Naloxone HCl (Narcan) 0.2 mg Q2M PRN IV RR 8 BREATHS/MIN OR LESS; Start at 07:30 Miscellaneous Information 1. Hold BEET WORKER at 1,000... BEET WORKER IV ; Start 07/29/17 at 07: 30 Pregabalin (Lyrica) 100 mg TID PO Last administered on 08/02/17 09:00; Admin Dose 100 MG; Start 07/29/17 at 09:00 EZETIMIBE (Zetia) 10 mg DAILY PO Last administered on 08/02/17 09:00; Admin Dose 10 MG; Start 07/31/17 at 09:00 Fenofibrate (Tricor) 145 mg DAILY PO Last administered on 08/02/17 09:00; Admin Dose 145 MG; Start 07/30/17 at 13:30 Diagnostic Test (Pha) 1 ea 1 ea 02 XX ; Start 07/31/17 at 02:00 Sodium Chloride (NS) 1,000 ml @ 80 mls/hr [id number] IV Last administered on 07/31 14:27; Admin Dose 80 MLS/HR; Start 07/30/17 at 13:30 Miscellaneous Information 1 ea NOTE XX ; Start 07/30/17 at 13:30 Glucose (Glutose) 15 gm Q15M PRN PO DECREASED GLUCOSE; Start 07/30/17 at 13:30 Glucose (Glutose) 22.5 gm Q15M PRN PO DECREASED GLUCOSE; Start 07/30/17 at 13: 30 Dextrose (D50w Syringe) 25 ml Q15M PRN IV DECREASED GLUCOSE; Start 07/30/17 at 13:30 Dextrose (D50w Syringe) 50 ml Q15M PRN IV DECREASED GLUCOSE; Start 07/30/17 at 13:30 Glucagon (Glucagen) 1 mg Q15M PRN IM DECREASED GLUCOSE; Start 07/30/17 at 13:30 Glucose (Glutose) 15 gm Q15M PRN BUCCAL DECREASED GLUCOSE; Start 07/30/17 at 13 :30 Tamsulosin HCl (Flomax) 0.4 mg HS PO Last administered on 08/01/17 20:45; Admin Dose 0.4 MG; Start 08/01/17 at 21:00 Bethanechol Chloride 10 mg 10 mg TID PO Last administered on 08/02/17 09:00; Admin Dose 10 MG; Start 08/01/17 at 13:00 Sodium Chloride (NS) 1,000 ml @ 50 mls/hr Q20H IV Last administered on 23:49; Admin Dose 50 MLS/HR; Start 08/01/17 at 23:00 Levofloxacin (Levaquin) 500 mg DAILY@06 PO Last administered on 08/02/17 06:18 ; Admin Dose 500 MG; Start 08/02/17 at 06:00 Tramadol HCl (Ultram) 50 mg Q6H PRN PO PAIN; Start 08/02/17 at 02:00 Assessment/Plan Chief Complaint/Hosp Course 71-year-old male underwent lumbar laminectomy 4 days ago. Postop he had urinary retention and when the catheter was removed he had 800 mL inside his bladder. He does have a mild history of lower urinary tract symptoms. His PSA has been normal. Rectal examination revealed soft prostate and mildly enlarged. He was started on tamsulosin 0.4 mg daily and Urecholine 10 mg 3 times a day with the hope that he could urinate but so far he continued to have high postvoid residual and he needed straight catheterization today. We will continue the tamsulosin and increase it to 0.4 mg twice a day and continue the Urecholine 10 mg 3 times a day and continue to monitor his voiding and the postvoid residual. Problems: TRISTON HOLLIS MD Aug 02, 2017 14:41
[2017-08-02] MEDS: TAMSULOSIN (SR) 0.4 MG CAP PO SCH ×2 (15:11→21:41)
--- NOTE | 2017-08-02 19:29 | CONS ---
Date/Time of Note Date/Time of Note DATE: 08/02/17 TIME: 19:26 Assessment/Plan Assessment/Plan Additional Assessment/Plan 1. This patient POD #4 a lumbar spine decompressive surgery. 2. urinary retention - s/p bell removal #2, seen by urology, straight cath > 400 cc 3 type 2 diabetes mellitus - controlled 4. cardiac pacemaker - monitor 5. UTI: started levaquin, due to bell and retention, wbc elevation - slight 6. Encephalopathy, multifactorial delirum and meds, no opiates now, monitor for with drawals (diarrhea and dysphroia) 5. This patient can be transferred to the acute rehab unit if cleared by orthopedics. Consultation Date/Type/Reason Admit Date/Time Jul 29, 2017 at 05:33 Initial Consult Date 08/01/17 Type of Consultation: Urology Referring Provider: GONZALO VALLEJO MD 24 HR Interval Summary Constitutional: improved, no complaints Exam/Review of Systems Vital Signs Vitals Vital Signs Date Time Temp Pulse Resp B/P Pulse Ox O2 Delivery O2 Flow Rate FiO2 08/02/17 14:29 97.8 82 20 136/78 97 08/01/17 20:46 Room Air 07/30/17 19:40 2.0 07/30/17 09:32 33 Intake and Output 08/01/17 08/01/17 08/02/17 15:00 23:00 07:00 Intake Total 1000 ml 600 ml 600 ml Output Total 2300 ml 1210 ml 655 ml Balance -1300 ml -610 ml -55 ml Exam Constitutional: alert, oriented, No distress Psych: nl mood/affect, no complaints Head: normocephalic Eyes: nl conjunctiva Neck: non-tender, supple Respiratory: clear to auscultation Cardiovascular: regular rate and rhythm Gastrointestinal: nl liver, spleen, soft Musculoskeletal: nl extremities to inspection Extremities: normal pulses Neurological: SQE II-XII intact, nl mental status, No confused Skin: nl turgor Results Result Diagram: 08/01/17 0433 08/01/173 Results 24 hrs Laboratory Tests Test 08/01/17 20:49 08/02/17 01:20 08/02/17 08:29 08/02/17 12:27 Bedside Glucose 128 111 120 Urine Color RED Urine Clarity CLOUDY A Urine pH 7.0 Urine Specific [place] 1.015 Urine Ketones NEGATIVE Urine Nitrite NEGATIVE Urine Bilirubin NEGATIVE Urine Urobilinogen NEGATIVE Urine Leukocyte Esterase NEGATIVE Urine Microscopic RBC > 182 H Urine Microscopic WBC > 182 H Urine Bacteria FEW A Urine Hemoglobin 3+ H Urine Glucose NEGATIVE Urine Total Protein 2+ H Test 08/02/17 17:42 Bedside Glucose 117 Medications Medications Current Medications Hydromorphone HCl (Dilaudid) 0.2 mg Q1H PRN IV BREAKTHROUGH PAIN Last administered on 07/30/17 14:56; Admin Dose 0.2 MG; Start 07/29/17 at 07:30 Ondansetron HCl (Zofran Inj) 4 mg Q6H PRN IV NAUSEA AND/OR VOMITING; Start 07/29/17 at 07:30 Bisacodyl (Dulcolax Supp) 10 mg DAILY PRN [place] CONSTIPATION Last administered on 08/01/17 03:09; Admin Dose 10 MG; Start 07/29/17 at 07:30 Docusate Sodium (Colace) 100 mg BID PO Last administered on 08/02/17 09:00; Admin Dose 100 MG; Start 07/29/17 at 09:00 Al Hydrox/Mg Hydrox/Simethicone (Mag-Al Plus) 15 ml Q6H PRN PO CONSTIPATION/ DYSPEPSIA; Start 07/29/17 at 07:30 Acetaminophen (Tylenol Tab) 650 mg Q4H PRN PO WILSON OR TEMP GREATER THAN 101.3F Last administered on 07/30/17 23:20; Admin Dose 325 MG; Start 07/29/17 at 07:30 Phenol (Cepastat Lozenge) 1 lozenge PRN PRN [place] SORE THROAT; Start 07/29/17 at 07:30 Diphenhydramine HCl (Benadryl) 25 mg Q6H PRN IV ITCHING; Start 07/29/17 at 07: 30 Naloxone HCl (Narcan) 0.2 mg Q2M PRN IV RR 8 BREATHS/MIN OR LESS; Start at 07:30 Miscellaneous Information 1. Hold WASTE/MATERIALS EXCHANGE SPECIALIST at 1,000... WASTE/MATERIALS EXCHANGE SPECIALIST IV ; Start 07/29/17 at 07: 30 Pregabalin (Lyrica) 100 mg TID PO Last administered on 08/02/17 09:00; Admin Dose 100 MG; Start 07/29/17 at 09:00 EZETIMIBE (Zetia) 10 mg DAILY PO Last administered on 08/02/17 09:00; Admin Dose 10 MG; Start 07/31/17 at 09:00 Fenofibrate (Tricor) 145 mg DAILY PO Last administered on 08/02/17 09:00; Admin Dose 145 MG; Start 07/30/17 at 13:30 Diagnostic Test (Pha) 1 ea 1 ea 02 XX ; Start 07/31/17 at 02:00 Sodium Chloride (NS) 1,000 ml @ 80 mls/hr [id number] IV Last administered on 07/31 14:27; Admin Dose 80 MLS/HR; Start 07/30/17 at 13:30 Miscellaneous Information 1 ea NOTE XX ; Start 07/30/17 at 13:30 Glucose (Glutose) 15 gm Q15M PRN PO DECREASED GLUCOSE; Start 07/30/17 at 13:30 Glucose (Glutose) 22.5 gm Q15M PRN PO DECREASED GLUCOSE; Start 07/30/17 at 13: 30 Dextrose (D50w Syringe) 25 ml Q15M PRN IV DECREASED GLUCOSE; Start 07/30/17 at 13:30 Dextrose (D50w Syringe) 50 ml Q15M PRN IV DECREASED GLUCOSE; Start 07/30/17 at 13:30 Glucagon (Glucagen) 1 mg Q15M PRN IM DECREASED GLUCOSE; Start 07/30/17 at 13:30 Glucose (Glutose) 15 gm Q15M PRN BUCCAL DECREASED GLUCOSE; Start 07/30/17 at 13 :30 Bethanechol Chloride 10 mg 10 mg TID PO Last administered on 08/02/17 15:10; Admin Dose 10 MG; Start 08/01/17 at 13:00 Sodium Chloride (NS) 1,000 ml @ 50 mls/hr Q20H IV Last administered on 23:49; Admin Dose 50 MLS/HR; Start 08/01/17 at 23:00 Levofloxacin (Levaquin) 500 mg DAILY@06 PO Last administered on 08/02/17 06:18 ; Admin Dose 500 MG; Start 08/02/17 at 06:00 Tramadol HCl (Ultram) 50 mg Q6H PRN PO PAIN; Start 08/02/17 at 02:00 Tamsulosin HCl (Flomax) 0.4 mg BID PO Last administered on 08/02/17t 15:11; Admin Dose 0.4 MG; Start 08/02/17 at 15:00 GRANT ALMODOVAR MD Aug 02, 2017 19:29
[2017-08-02 20:01] VITALS: BP 117/74; PULSE 82; RESP 18
[2017-08-03] MEDS: SOD CHLORIDE 0.9% 1,000 ML IV SCH ×3 (01:24→15:00)
[2017-08-03 01:26] VITALS: BP 124/68; PULSE 68; RESP 18
[2017-08-03] MEDS: ACCU-CHEK XX SCH (01:26)
[2017-08-03 05:27] LABS: BASOPHIL # 0.1 10^3/ul (0.0-0.1); BASOPHILS % 0.7 % (0.0-2.0); EOSINOPHILS # 0.2 10^3/ul (0.0-0.5); EOSINOPHILS % 2.9 % (0.0-7.0); HEMATOCRIT 30.8 % (42.0-52.0); HEMOGLOBIN 10.9 g/dl (14.0-18.0); LYMPHOCYTES # 1.8 10^3/ul (0.8-2.9); LYMPHOCYTES % 25.5 % (15.0-51.0); MEAN CORPUSCULAR HEMOGLOBIN 31.9 pg (29.0-33.0); MEAN CORPUSCULAR HGB CONC 35.4 g/dl (32.0-37.0); MEAN CORPUSCULAR VOLUME 90.1 fl (82.0-101.0); MEAN PLATELET VOLUME 9.9 fl (7.4-10.4); MONOCYTE # 0.7 10^3/ul (0.3-0.9); MONOCYTES % 10.1 % (0.0-11.0); NEUTROPHIL # 4.2 10^3/ul (1.6-7.5); NEUTROPHILS % 60.2 % (39.0-77.0); PLATELET COUNT 440 10^3/UL (140-415); RED BLOOD COUNT 3.42 10^6/ul (4.70-6.10); RED CELL DISTRIBUTION WIDTH 12.9 % (11.5-14.5)
[2017-08-03 06:28] LABS: ALBUMIN 3.3 g/dl (3.3-4.9); BILIRUBIN,INDIRECT 0.3 mg/dl (0-1.1); BILIRUBIN,TOTAL 0.3 mg/dl (0.2-1.3); CALCIUM 9.5 mg/dl (8.4-10.2); CREATININE 0.8 mg/dl (0.61-1.24); POTASSIUM 3.2 mmol/L (3.5-5.1); TOTAL PROTEIN 6.6 g/dl (6.1-8.1)
[2017-08-03] MEDS: LEVOFLOXACIN 500 MG TAB PO SCH (06:54)
[2017-08-03] MEDS: INSULIN ASPART [NOVOLOG] 3 ML PEN SC SCH ×3 (07:20→17:25)
[2017-08-03 08:00] VITALS: BP 116/71; RESP 20
[2017-08-03] MEDS: metFORMIN 500 MG TAB PO SCH ×2 (08:36→17:32)
[2017-08-03] MEDS: PREGABALIN 100 MG CAP PO SCH ×3 (08:36→20:08)
[2017-08-03] MEDS: BETHANECHOL 10 MG TAB PO SCH ×3 (08:36→20:08)
[2017-08-03] MEDS: DOCUSATE SODIUM 100 MG CAP PO SCH ×2 (08:36→20:08)
[2017-08-03] MEDS: TAMSULOSIN (SR) 0.4 MG CAP PO SCH ×2 (08:36→20:08)
[2017-08-03] MEDS: EZETIMIBE 10 MG TAB PO SCH (08:36)
[2017-08-03] MEDS: FENOFIBRATE 145 MG TAB PO SCH (08:36)
[2017-08-03] MEDS: traMADol 50 MG TAB PO PRN ×2 (09:25→23:48)
[2017-08-03 12:00] VITALS: BP 121/70; RESP 18
--- NOTE | 2017-08-03 13:35 | PN ---
Date/Time of Note Date/Time of Note DATE: 08/03/17 TIME: 13:35 Assessment/Plan Lines/Catheters IV Catheter Type (from [facility], [place]): Peripheral IV Greenfield in Place (from [facility], [place]): No Assessment/Plan Chief Complaint/Hosp Course Patient was admitted to the ICU after undergoing the above surgery. He subsequently transferred to the orthopedic sadler. He had the Greenfield catheter removed and reinserted revealing urinary retention. He had some confusion and medication dosages were decreased. Ultimately he was deemed stable for transfer to acute rehab. Problems: Assessment/Plan improved abc for suspected uti tx to acute rehab Subjective 24 Hr Interval Summary less confused Exam/Review of Systems Vital Signs Vitals Vital Signs Date Time Temp Pulse Resp B/P Pulse Ox O2 Delivery O2 Flow Rate FiO2 08/03/17 12:00 97.8 78 18 121/70 97 08/03/17 01:26 Room Air 07/30/17 19:40 2.0 07/30/17 09:32 33 Intake and Output 08/02/17 08/02/17 08/03/17 15:00 23:00 07:00 Intake Total 1300 ml 1550 ml Output Total 400 ml 700 ml 1405 ml Balance -400 ml 600 ml 145 ml Exam Free Text/Dictation nvi Results Result Diagram: 08/03/17 0437 08/03/17 0437 EVELINA SUTTON MD Aug 03, 2017 13:35
--- NOTE | 2017-08-03 15:38 | CONS ---
Date/Time of Note Date/Time of Note DATE: 08/03/17 TIME: 15:35 Consult Date/Type/Reason Admit Date/Time Jul 29, 2017 at 05:33 Initial Consult Date 08/01/17 Type of Consultation: Urology Reason for Consultation Urinary retention Ordering Provider: GONZALO VALLEJO MD Subjective Patient now is resting, sleeping. He still have a sitter because of confusion. Objective Vital Signs Date Time Temp Pulse Resp B/P Pulse Ox O2 Delivery O2 Flow Rate FiO2 08/03/17 12:00 97.8 78 18 121/70 97 08/03/17 01:26 Room Air 07/30/17 19:40 2.0 07/30/17 09:32 33 Intake and Output 08/02/17 08/02/17 08/03/17 15:00 23:00 07:00 Intake Total 1300 ml 1550 ml Output Total 400 ml 700 ml 1405 ml Balance -400 ml 600 ml 145 ml Exam The nurse and the sitter report that he is voiding but no bladder scan was done to check his postvoid residual. Results/Medications Result Diagram: 08/03/17 0437 08/03/17 0437 Results 24 hrs Laboratory Tests Test 08/02/17 17:42 08/03/17 04:37 08/03/17 08:32 08/03/17 12:35 Bedside Glucose 117 109 104 White Blood Count 7.0 # Red Blood Count 3.42 L Hemoglobin 10.9 L Hematocrit 30.8 L Mean Corpuscular Volume 90.1 Mean Corpuscular Hemoglobin 31.9 Mean Corpuscular Hemoglobin Concent 35.4 Red Cell Distribution Width 12.9 Platelet Count 440 H Mean Platelet Volume 9.9 Neutrophils % 60.2 Lymphocytes % 25.5 Monocytes % 10.1 Eosinophils % 2.9 Basophils % 0.7 Nucleated Red Blood Cells % 0.0 Neutrophils # 4.2 Lymphocytes # 1.8 Monocytes # 0.7 Eosinophils # 0.2 Basophils # 0.1 Nucleated Red Blood Cells # 0.0 Sodium Level 136 Potassium Level 3.2 L Chloride Level 103 Carbon Dioxide Level 23 Anion Gap 13 Blood Urea Nitrogen 14 Creatinine 0.80 Glucose Level 108 Calcium Level 9.5 Total Bilirubin 0.3 Direct Bilirubin 0.00 Indirect Bilirubin 0.3 Aspartate Amino Transf (AST/SGOT) 29 Alanine Aminotransferase (ALT/SGPT) 40 Alkaline Phosphatase 41 L B-Type Natriuretic Peptide 39 Total Protein 6.6 Albumin 3.3 Globulin 3.30 H Albumin/Globulin Ratio 1.00 Medications Current Medications Hydromorphone HCl (Dilaudid) 0.2 mg Q1H PRN IV BREAKTHROUGH PAIN Last administered on 07/30/17 14:56; Admin Dose 0.2 MG; Start 07/29/17 at 07:30 Ondansetron HCl (Zofran Inj) 4 mg Q6H PRN IV NAUSEA AND/OR VOMITING; Start 07/29/17 at 07:30 Bisacodyl (Dulcolax Supp) 10 mg DAILY PRN [place] CONSTIPATION Last administered on 08/01/17 03:09; Admin Dose 10 MG; Start 07/29/17 at 07:30 Docusate Sodium (Colace) 100 mg BID PO Last administered on 08/03/17 08:36; Admin Dose 100 MG; Start 07/29/17 at 09:00 Al Hydrox/Mg Hydrox/Simethicone (Mag-Al Plus) 15 ml Q6H PRN PO CONSTIPATION/ DYSPEPSIA; Start 07/29/17 at 07:30 Acetaminophen (Tylenol Tab) 650 mg Q4H PRN PO WILSON OR TEMP GREATER THAN 101.3F Last administered on 07/30/17 23:20; Admin Dose 325 MG; Start 07/29/17 at 07:30 Phenol (Cepastat Lozenge) 1 lozenge PRN PRN MT SORE THROAT; Start 07/29/17 at 07:30 Diphenhydramine HCl (Benadryl) 25 mg Q6H PRN IV ITCHING; Start 07/29/17 at 07: 30 Naloxone HCl (Narcan) 0.2 mg Q2M PRN IV RR 8 BREATHS/MIN OR LESS; Start at 07:30 Miscellaneous Information 1. Hold GRANITE POLISHER MACHINE at 1,000... GRANITE POLISHER MACHINE IV ; Start 07/29/17 at 07: 30 Pregabalin (Lyrica) 100 mg TID PO Last administered on 08/03/17 13:17; Admin Dose 100 MG; Start 07/29/17 at 09:00 EZETIMIBE (Zetia) 10 mg DAILY PO Last administered on 08/03/17 08:36; Admin Dose 10 MG; Start 07/31/17 at 09:00 Fenofibrate (Tricor) 145 mg DAILY PO Last administered on 08/03/17 08:36; Admin Dose 145 MG; Start 07/30/17 at 13:30 Diagnostic Test (Pha) (Accu-Chek) 1 ea 02 XX ; Start 07/31/17 at 02:00 Miscellaneous Information 1 ea NOTE XX ; Start 07/30/17 at 13:30 Glucose (Glutose) 15 gm Q15M PRN PO DECREASED GLUCOSE; Start 07/30/17 at 13:30 Glucose (Glutose) 22.5 gm Q15M PRN PO DECREASED GLUCOSE; Start 07/30/17 at 13: 30 Dextrose (D50w Syringe) 25 ml Q15M PRN IV DECREASED GLUCOSE; Start 07/30/17 at 13:30 Dextrose (D50w Syringe) 50 ml Q15M PRN IV DECREASED GLUCOSE; Start 07/30/17 at 13:30 Glucagon (Glucagen) 1 mg Q15M PRN IM DECREASED GLUCOSE; Start 07/30/17 at 13:30 Glucose (Glutose) 15 gm Q15M PRN BUCCAL DECREASED GLUCOSE; Start 07/30/17 at 13 :30 Bethanechol Chloride 10 mg 10 mg TID PO Last administered on 08/03/17 13:17; Admin Dose 10 MG; Start 08/01/17 at 13:00 Sodium Chloride (NS) 1,000 ml @ 50 mls/hr Q20H IV Last administered on 01:24; Admin Dose 50 MLS/HR; Start 08/01/17 at 23:00 Levofloxacin (Levaquin) 500 mg DAILY@06 PO Last administered on 08/03/17 06: 54; Admin Dose 500 MG; Start 08/02/17 at 06:00 Tramadol HCl (Ultram) 50 mg Q6H PRN PO PAIN Last administered on 08/03/17 09: 25; Admin Dose 50 MG; Start 08/02/17 at 02:00 Tamsulosin HCl (Flomax) 0.4 mg BID PO Last administered on 08/03/17 08:36; Admin Dose 0.4 MG; Start 08/02/17 at 15:00 Assessment/Plan Chief Complaint/Hosp Course 71-year-old male underwent lumbar laminectomy 5 days ago. Postop he had urinary retention and when the catheter was removed he had 800 mL inside his bladder. He does have a mild history of lower urinary tract symptoms. His PSA has been normal. Rectal examination revealed soft prostate and mildly enlarged. He was started on tamsulosin 0.4 mg daily and Urecholine 10 mg 3 times a day with the hope that he could urinate . We will continue the tamsulosin 0.4 mg twice a day and continue the Urecholine 10 mg 3 times a day and continue to monitor his voiding and the postvoid residual. Problems: TRISTON HOLLIS MD Aug 03, 2017 15:38
--- NOTE | 2017-08-03 16:28 | CONS ---
Date/Time of Note Date/Time of Note DATE: 08/03/17 TIME: 16:24 Assessment/Plan Assessment/Plan Additional Assessment/Plan 1. This patient POD #5 a lumbar spine decompressive surgery. 2. urinary retention - s/p bell removal #2, seen by urology, straight cath > 400 cc 3 type 2 diabetes mellitus - controlled 4. cardiac pacemaker - monitor 5. UTI: started levaquin, due to bell and retention, wbc elevation - improvede after leaquin, bell high wbc and LE Nitrite 6. Encephalopathy, multifactorial delirum and meds, no opiates now, monitor for with drawals (diarrhea and dysphroia) 5. This patient can be transferred to the acute rehab unit if cleared by orthopedics. STABLE from medicine to d/c to ARU, but no beds today Consultation Date/Type/Reason Admit Date/Time Jul 29, 2017 at 05:33 Initial Consult Date 08/01/17 Type of Consultation: Urology Referring Provider: GONZALO VALLEJO MD 24 HR Interval Summary Constitutional: improved, no complaints Exam/Review of Systems Vital Signs Vitals Vital Signs Date Time Temp Pulse Resp B/P Pulse Ox O2 Delivery O2 Flow Rate FiO2 08/03/17 12:00 97.8 78 18 121/70 97 08/03/17 01:26 Room Air 07/30/17 19:40 2.0 07/30/17 09:32 33 Intake and Output 08/02/17 08/02/17 08/03/17 15:00 23:00 07:00 Intake Total 1300 ml 1550 ml Output Total 400 ml 700 ml 1405 ml Balance -400 ml 600 ml 145 ml Exam Constitutional: alert, No oriented Psych: confusion, no complaints Head: normocephalic, No lacerations Eyes: EOMI, nl conjunctiva ENMT: nl external ears & nose, nl lips & teeth Neck: non-tender, supple Respiratory: clear to auscultation Cardiovascular: regular rate and rhythm Gastrointestinal: soft Neurological: DESIGN PRINTING MACHINE SET UP OPERATOR II-XII intact Results Result Diagram: 08/03/17 0437 08/03/17 0437 Results 24 hrs Laboratory Tests Test 08/02/17 17:42 08/03/17 04:37 08/03/17 08:32 08/03/17 12:35 Bedside Glucose 117 109 104 White Blood Count 7.0 # Red Blood Count 3.42 L Hemoglobin 10.9 L Hematocrit 30.8 L Mean Corpuscular Volume 90.1 Mean Corpuscular Hemoglobin 31.9 Mean Corpuscular Hemoglobin Concent 35.4 Red Cell Distribution Width 12.9 Platelet Count 440 H Mean Platelet Volume 9.9 Neutrophils % 60.2 Lymphocytes % 25.5 Monocytes % 10.1 Eosinophils % 2.9 Basophils % 0.7 Nucleated Red Blood Cells % 0.0 Neutrophils # 4.2 Lymphocytes # 1.8 Monocytes # 0.7 Eosinophils # 0.2 Basophils # 0.1 Nucleated Red Blood Cells # 0.0 Sodium Level 136 Potassium Level 3.2 L Chloride Level 103 Carbon Dioxide Level 23 Anion Gap 13 Blood Urea Nitrogen 14 Creatinine 0.80 Glucose Level 108 Calcium Level 9.5 Total Bilirubin 0.3 Direct Bilirubin 0.00 Indirect Bilirubin 0.3 Aspartate Amino Transf (AST/SGOT) 29 Alanine Aminotransferase (ALT/SGPT) 40 Alkaline Phosphatase 41 L B-Type Natriuretic Peptide 39 Total Protein 6.6 Albumin 3.3 Globulin 3.30 H Albumin/Globulin Ratio 1.00 Medications Medications Current Medications Hydromorphone HCl (Dilaudid) 0.2 mg Q1H PRN IV BREAKTHROUGH PAIN Last administered on 07/30/17 14:56; Admin Dose 0.2 MG; Start 07/29/17 at 07:30 Ondansetron HCl (Zofran Inj) 4 mg Q6H PRN IV NAUSEA AND/OR VOMITING; Start 07/29/17 at 07:30 Bisacodyl (Dulcolax Supp) 10 mg DAILY PRN [place] CONSTIPATION Last administered on 08/01/17 03:09; Admin Dose 10 MG; Start 07/29/17 at 07:30 Docusate Sodium (Colace) 100 mg BID PO Last administered on 08/03/17 08:36; Admin Dose 100 MG; Start 07/29/17 at 09:00 Al Hydrox/Mg Hydrox/Simethicone (Mag-Al Plus) 15 ml Q6H PRN PO CONSTIPATION/ DYSPEPSIA; Start 07/29/17 at 07:30 Acetaminophen (Tylenol Tab) 650 mg Q4H PRN PO WILSON OR TEMP GREATER THAN 101.3F Last administered on 07/30/17 23:20; Admin Dose 325 MG; Start 07/29/17 at 07:30 Phenol (Cepastat Lozenge) 1 lozenge PRN PRN MT SORE THROAT; Start 07/29/17 at 07:30 Diphenhydramine HCl (Benadryl) 25 mg Q6H PRN IV ITCHING; Start 07/29/17 at 07: 30 Naloxone HCl (Narcan) 0.2 mg Q2M PRN IV RR 8 BREATHS/MIN OR LESS; Start at 07:30 Miscellaneous Information 1. Hold SOLAR INSTALLATION FOREMAN at 1,000... SOLAR INSTALLATION FOREMAN IV ; Start 07/29/17 at 07: 30 Pregabalin (Lyrica) 100 mg TID PO Last administered on 08/03/17 13:17; Admin Dose 100 MG; Start 07/29/17 at 09:00 EZETIMIBE (Zetia) 10 mg DAILY PO Last administered on 08/03/17 08:36; Admin Dose 10 MG; Start 07/31/17 at 09:00 Fenofibrate (Tricor) 145 mg DAILY PO Last administered on 08/03/17 08:36; Admin Dose 145 MG; Start 07/30/17 at 13:30 Diagnostic Test (Pha) (Accu-Chek) 1 ea 02 XX ; Start 07/31/17 at 02:00 Miscellaneous Information 1 ea NOTE XX ; Start 07/30/17 at 13:30 Glucose (Glutose) 15 gm Q15M PRN PO DECREASED GLUCOSE; Start 07/30/17 at 13:30 Glucose (Glutose) 22.5 gm Q15M PRN PO DECREASED GLUCOSE; Start 07/30/17 at 13: 30 Dextrose (D50w Syringe) 25 ml Q15M PRN IV DECREASED GLUCOSE; Start 07/30/17 at 13:30 Dextrose (D50w Syringe) 50 ml Q15M PRN IV DECREASED GLUCOSE; Start 07/30/17 at 13:30 Glucagon (Glucagen) 1 mg Q15M PRN IM DECREASED GLUCOSE; Start 07/30/17 at 13:30 Glucose (Glutose) 15 gm Q15M PRN BUCCAL DECREASED GLUCOSE; Start 07/30/17 at 13 :30 Bethanechol Chloride 10 mg 10 mg TID PO Last administered on 08/03/17 13:17; Admin Dose 10 MG; Start 08/01/17 at 13:00 Sodium Chloride (NS) 1,000 ml @ 50 mls/hr Q20H IV Last administered on 01:24; Admin Dose 50 MLS/HR; Start 08/01/17 at 23:00 Levofloxacin (Levaquin) 500 mg DAILY@06 PO Last administered on 08/03/17 06: 54; Admin Dose 500 MG; Start 08/02/17 at 06:00 Tramadol HCl (Ultram) 50 mg Q6H PRN PO PAIN Last administered on 08/03/17 09: 25; Admin Dose 50 MG; Start 08/02/17 at 02:00 Tamsulosin HCl (Flomax) 0.4 mg BID PO Last administered on 08/03/17 08:36; Admin Dose 0.4 MG; Start 08/02/17 at 15:00 GRANT ALMODOVAR MD Aug 03, 2017 16:28
[2017-08-03 20:30] VITALS: BP 122/76; RESP 20
[2017-08-04] MEDS: ACCU-CHEK XX SCH (02:00)
[2017-08-04 02:17] VITALS: BP 122/63; RESP 18
[2017-08-04 05:16] LABS: BASOPHIL # 0.1 10^3/ul (0.0-0.1); BASOPHILS % 1.3 % (0.0-2.0); EOSINOPHILS # 0.3 10^3/ul (0.0-0.5); EOSINOPHILS % 4.2 % (0.0-7.0); HEMATOCRIT 31.2 % (42.0-52.0); HEMOGLOBIN 10.6 g/dl (14.0-18.0); LYMPHOCYTES # 1.7 10^3/ul (0.8-2.9); LYMPHOCYTES % 28.4 % (15.0-51.0); MEAN CORPUSCULAR HEMOGLOBIN 30.6 pg (29.0-33.0); MEAN CORPUSCULAR VOLUME 90.2 fl (82.0-101.0); MEAN PLATELET VOLUME 9.7 fl (7.4-10.4); MONOCYTE # 0.6 10^3/ul (0.3-0.9); MONOCYTES % 9.5 % (0.0-11.0); NEUTROPHIL # 3.4 10^3/ul (1.6-7.5); NEUTROPHILS % 56.3 % (39.0-77.0); PLATELET COUNT 474 10^3/UL (140-415); RED BLOOD COUNT 3.46 10^6/ul (4.70-6.10); RED CELL DISTRIBUTION WIDTH 12.7 % (11.5-14.5); WHITE BLOOD COUNT 6.1 10^3/ul (4.8-10.8)
[2017-08-04 05:33] LABS: ALBUMIN 3.2 g/dl (3.3-4.9); CALCIUM 9.1 mg/dl (8.4-10.2); CREATININE 0.7 mg/dl (0.61-1.24); MAGNESIUM 1.8 mg/dl (1.7-2.5); PHOSPHORUS 3.6 mg/dl (2.5-4.9); POTASSIUM 3.2 mmol/L (3.5-5.1)
[2017-08-04] MEDS: LEVOFLOXACIN 500 MG TAB PO SCH (06:10)
[2017-08-04] MEDS: INSULIN ASPART [NOVOLOG] 3 ML PEN SC SCH ×2 (07:20→11:10)
[2017-08-04] MEDS: TAMSULOSIN (SR) 0.4 MG CAP PO SCH (08:15)
[2017-08-04] MEDS: DOCUSATE SODIUM 100 MG CAP PO SCH (08:15)
[2017-08-04] MEDS: EZETIMIBE 10 MG TAB PO SCH (08:15)
[2017-08-04] MEDS: FENOFIBRATE 145 MG TAB PO SCH (08:15)
[2017-08-04] MEDS: metFORMIN 500 MG TAB PO SCH (08:16)
[2017-08-04] MEDS: PREGABALIN 100 MG CAP PO SCH ×2 (08:16→12:09)
[2017-08-04] MEDS: BETHANECHOL 10 MG TAB PO SCH (08:16)
[2017-08-04 08:30] VITALS: BP 143/72; RESP 18
[2017-08-04] MEDS ORDERED: POTASSIUM CHLORIDE (SR) 20 MEQ TAB PO SCH (10:00)
--- NOTE | 2017-08-04 10:17 | CONS ---
Date/Time of Note Date/Time of Note DATE: 08/04/17 TIME: 10:07 Assessment/Plan Assessment/Plan Chief Complaint/Hosp Course 1. This patient is 6 days postop a lumbar spine decompressive surgery. 2. urinary retention. He is now on tamsulosin and urecholine 3 type 2 diabetes mellitus 4. cardiac pacemaker 5. This patient wants to go home and do outpatient PT . He does not want to go Acute Rehab .He could be discharged today from my standpoint .Will await evaluation by urology and ortho . Problems: Consultation Date/Type/Reason Admit Date/Time Jul 29, 2017 at 05:33 Type of Consultation: nephrology Referring Provider: GONZALO VALLEJO MD 24 HR Interval Summary Free Text/Dictation He is awake and alert . He is feeling better and wants to be discharged home . he does not want to go to rehab . He still has significant urinary retention but refuses to be catherized . Constitutional: no complaints Exam/Review of Systems Vital Signs Vitals Vital Signs Date Time Temp Pulse Resp B/P Pulse Ox O2 Delivery O2 Flow Rate FiO2 08/04/17 08:30 98.2 72 18 143/72 99 08/03/17 01:26 Room Air Intake and Output 08/03/17 08/03/17 08/04/17 15:00 23:00 07:00 Intake Total 1235 ml 420 ml 480 ml Output Total 800 ml Balance 1235 ml 420 ml -320 ml Exam Constitutional: alert, oriented, well developed Neck: non-tender, supple Respiratory: clear to auscultation, normal air movement Cardiovascular: regular rate and rhythm Gastrointestinal: nl liver, spleen, non-tender, soft Musculoskeletal: nl extremities to inspection Results Result Diagram: 08/04/1741908/04/17 0420 Results 24 hrs Laboratory Tests Test 08/03/17 12:35 08/03/17 17:30 08/04/17 04:20 08/04/17 08:17 Bedside Glucose 104 93 85 White Blood Count 6.1 Red Blood Count 3.46 L Hemoglobin 10.6 L Hematocrit 31.2 L Mean Corpuscular Volume 90.2 Mean Corpuscular Hemoglobin 30.6 Mean Corpuscular Hemoglobin Concent 34.0 Red Cell Distribution Width 12.7 Platelet Count 474 H Mean Platelet Volume 9.7 Neutrophils % 56.3 Lymphocytes % 28.4 Monocytes % 9.5 Eosinophils % 4.2 Basophils % 1.3 Nucleated Red Blood Cells % 0.0 Neutrophils # 3.4 Lymphocytes # 1.7 Monocytes # 0.6 Eosinophils # 0.3 Basophils # 0.1 Nucleated Red Blood Cells # 0.0 Sodium Level 135 Potassium Level 3.2 L Chloride Level 102 Carbon Dioxide Level 24 Anion Gap 12 Blood Urea Nitrogen 15 Creatinine 0.70 Glucose Level 86 Calcium Level 9.1 Phosphorus Level 3.6 Magnesium Level 1.8 Albumin 3.2 L Medications Medications Current Medications Hydromorphone HCl (Dilaudid) 0.2 mg Q1H PRN IV BREAKTHROUGH PAIN Last administered on 07/30/17 14:56; Admin Dose 0.2 MG; Start 07/29/17 at 07:30 Ondansetron HCl (Zofran Inj) 4 mg Q6H PRN IV NAUSEA AND/OR VOMITING; Start 07/29/17 at 07:30 Bisacodyl (Dulcolax Supp) 10 mg DAILY PRN MT CONSTIPATION Last administered on 08/01/17 03:09; Admin Dose 10 MG; Start 07/29/17 at 07:30 Docusate Sodium (Colace) 100 mg BID PO Last administered on 08/04/17 08:15; Admin Dose 100 MG; Start 07/29/17 at 09:00 Al Hydrox/Mg Hydrox/Simethicone (Mag-Al Plus) 15 ml Q6H PRN PO CONSTIPATION/ DYSPEPSIA; Start 07/29/17 at 07:30 Acetaminophen (Tylenol Tab) 650 mg Q4H PRN PO WILSON OR TEMP GREATER THAN 101.3F Last administered on 07/30/17 23:20; Admin Dose 325 MG; Start 07/29/17 at 07:30 Phenol (Cepastat Lozenge) 1 lozenge PRN PRN MT SORE THROAT; Start 07/29/17 at 07:30 Diphenhydramine HCl (Benadryl) 25 mg Q6H PRN IV ITCHING; Start 07/29/17 at 07: 30 Naloxone HCl (Narcan) 0.2 mg Q2M PRN IV RR 8 BREATHS/MIN OR LESS; Start at 07:30 Miscellaneous Information 1. Hold PROCUREMENT OFFICER at 1,000... PROCUREMENT OFFICER IV ; Start 07/29/17 at 07: 30 Pregabalin (Lyrica) 100 mg TID PO Last administered on 08/04/17 08:16; Admin Dose 100 MG; Start 07/29/17 at 09:00 EZETIMIBE (Zetia) 10 mg DAILY PO Last administered on 08/04/17 08:15; Admin Dose 10 MG; Start 07/31/17 at 09:00 Fenofibrate (Tricor) 145 mg DAILY PO Last administered on 08/04/17 08:15; Admin Dose 145 MG; Start 07/30/17 at 13:30 Diagnostic Test (Pha) (Accu-Chek) 1 ea 02 XX ; Start 07/31/17 at 02:00 Miscellaneous Information 1 ea NOTE XX ; Start 07/30/17 at 13:30 Glucose (Glutose) 15 gm Q15M PRN PO DECREASED GLUCOSE; Start 07/30/17 at 13:30 Glucose (Glutose) 22.5 gm Q15M PRN PO DECREASED GLUCOSE; Start 07/30/17 at 13: 30 Dextrose (D50w Syringe) 25 ml Q15M PRN IV DECREASED GLUCOSE; Start 07/30/17 at 13:30 Dextrose (D50w Syringe) 50 ml Q15M PRN IV DECREASED GLUCOSE; Start 07/30/17 at 13:30 Glucagon (Glucagen) 1 mg Q15M PRN IM DECREASED GLUCOSE; Start 07/30/17 at 13:30 Glucose (Glutose) 15 gm Q15M PRN BUCCAL DECREASED GLUCOSE; Start 07/30/17 at 13 :30 Bethanechol Chloride 10 mg 10 mg TID PO Last administered on 08/04/17 08:16; Admin Dose 10 MG; Start 08/01/17 at 13:00 Sodium Chloride (NS) 1,000 ml @ 50 mls/hr Q20H IV Last administered on 01:24; Admin Dose 50 MLS/HR; Start 08/01/17 at 23:00 Levofloxacin (Levaquin) 500 mg DAILY@06 PO Last administered on 08/04/17 06: 10; Admin Dose 500 MG; Start 08/02/17 at 06:00 Tramadol HCl (Ultram) 50 mg Q6H PRN PO PAIN Last administered on 08/03/17 23: 48; Admin Dose 50 MG; Start 08/02/17 at 02:00 Tamsulosin HCl (Flomax) 0.4 mg BID PO Last administered on 08/04/17t 08:15; Admin Dose 0.4 MG; Start 08/02/17 at 15:00 GONZALO VALLEJO MD Aug 04, 2017 10:17
[2017-08-04] MEDS: SOD CHLORIDE 0.9% 1,000 ML IV SCH (11:00)
[2017-08-04] MEDS ORDERED: BETHANECHOL 10 MG TAB PO SCH (13:00)
--- NOTE | 2017-08-04 13:16 | PN ---
Date/Time of Note Date/Time of Note DATE: 08/04/17 TIME: 13:16 Assessment/Plan Lines/Catheters IV Catheter Type (from Nrs): Sal[place] in Place (from Nrs): No Assessment/Plan Assessment/Plan patient cleared for acute rehab from ortho standpoint urinary retention - management per Dr. Sands Subjective 24 Hr Interval Summary patient wishes to go to acute rehab Exam/Review of Systems Vital Signs Vitals Vital Signs Date Time Temp Pulse Resp B/P Pulse Ox O2 Delivery O2 Flow Rate FiO2 08/04/17 08:30 98.2 72 18 143/72 99 08/03/17 01:26 Room Air Intake and Output 08/03/17 08/03/17 08/04/17 15:00 23:00 07:00 Intake Total 1235 ml 420 ml 480 ml Output Total 800 ml Balance 1235 ml 420 ml -320 ml Results Result Diagram: 08/04/17 0420 08/04/17 0420 AUBRIE TINEO PA-C Aug 04, 2017 13:16
--- NOTE | 2017-08-04 13:56 | CONS ---
Date/Time of Note Date/Time of Note DATE: 08/04/17 TIME: 13:51 Consult Date/Type/Reason Admit Date/Time Jul 29, 2017 at 05:33 Initial Consult Date 08/01/17 Type of Consultation: Urology Reason for Consultation Urinary retention Ordering Provider: GONZALO VALLEJO MD Subjective Patient still little confused. He thinks that he is urinating well even though he has postvoid residual of over 200-300 mL. He thinks that the catheter made him unable to urinate and caused him an infection even though the urine culture showed no growth after 48 hours Objective Vital Signs Date Time Temp Pulse Resp B/P Pulse Ox O2 Delivery O2 Flow Rate FiO2 08/04/17 08:30 98.2 72 18 143/72 99 08/03/17 01:26 Room Air Intake and Output 08/03/17 08/03/17 08/04/17 14:59 22:59 06:59 Intake Total 995 ml 660 ml 480 ml Output Total 800 ml Balance 995 ml 660 ml -320 ml Exam Abdomen is soft, there is no tenderness or mass palpable, he has been voiding between 100 to 250 mL each time and the postvoid residual ranged between 235- 360 mL Results/Medications Result Diagram: 08/04/17 0420 08/04/17 0420 Results 24 hrs Laboratory Tests Test 08/03/17 17:30 08/04/17 04:20 08/04/17 08:17 08/04/17 11:28 Bedside Glucose 93 85 117 White Blood Count 6.1 Red Blood Count 3.46 L Hemoglobin 10.6 L Hematocrit 31.2 L Mean Corpuscular Volume 90.2 Mean Corpuscular Hemoglobin 30.6 Mean Corpuscular Hemoglobin Concent 34.0 Red Cell Distribution Width 12.7 Platelet Count 474 H Mean Platelet Volume 9.7 Neutrophils % 56.3 Lymphocytes % 28.4 Monocytes % 9.5 Eosinophils % 4.2 Basophils % 1.3 Nucleated Red Blood Cells % 0.0 Neutrophils # 3.4 Lymphocytes # 1.7 Monocytes # 0.6 Eosinophils # 0.3 Basophils # 0.1 Nucleated Red Blood Cells # 0.0 Sodium Level 135 Potassium Level 3.2 L Chloride Level 102 Carbon Dioxide Level 24 Anion Gap 12 Blood Urea Nitrogen 15 Creatinine 0.70 Glucose Level 86 Calcium Level 9.1 Phosphorus Level 3.6 Magnesium Level 1.8 Albumin 3.2 L Medications Current Medications Hydromorphone HCl (Dilaudid) 0.2 mg Q1H PRN IV BREAKTHROUGH PAIN Last administered on 07/30/17 14:56; Admin Dose 0.2 MG; Start 07/29/17 at 07:30 Ondansetron HCl (Zofran Inj) 4 mg Q6H PRN IV NAUSEA AND/OR VOMITING; Start 07/29/17 at 07:30 Bisacodyl (Dulcolax Supp) 10 mg DAILY PRN [place] CONSTIPATION Last administered on 08/01/17 03:09; Admin Dose 10 MG; Start 07/29/17 at 07:30 Docusate Sodium (Colace) 100 mg BID PO Last administered on 08/04/17 08:15; Admin Dose 100 MG; Start 07/29/17 at 09:00 Al Hydrox/Mg Hydrox/Simethicone (Mag-Al Plus) 15 ml Q6H PRN PO CONSTIPATION/ DYSPEPSIA; Start 07/29/17 at 07:30 Acetaminophen (Tylenol Tab) 650 mg Q4H PRN PO WILSON OR TEMP GREATER THAN 101.3F Last administered on 07/30/17 23:20; Admin Dose 325 MG; Start 07/29/17 at 07:30 Phenol (Cepastat Lozenge) 1 lozenge PRN PRN MT SORE THROAT; Start 07/29/17 at 07:30 Diphenhydramine HCl (Benadryl) 25 mg Q6H PRN IV ITCHING; Start 07/29/17 at 07: 30 Naloxone HCl (Narcan) 0.2 mg Q2M PRN IV RR 8 BREATHS/MIN OR LESS; Start at 07:30 Miscellaneous Information 1. Hold BOARD OF DIRECTORS at 1,000... BOARD OF DIRECTORS IV ; Start 07/29/17 at 07: 30 Pregabalin (Lyrica) 100 mg TID PO Last administered on 08/04/17 12:09; Admin Dose 100 MG; Start 07/29/17 at 09:00 EZETIMIBE (Zetia) 10 mg DAILY PO Last administered on 08/04/17 08:15; Admin Dose 10 MG; Start 07/31/17 at 09:00 Fenofibrate (Tricor) 145 mg DAILY PO Last administered on 08/04/17 08:15; Admin Dose 145 MG; Start 07/30/17 at 13:30 Diagnostic Test (Pha) (Accu-Chek) 1 ea 02 XX ; Start 07/31/17 at 02:00 Miscellaneous Information 1 ea NOTE XX ; Start 07/30/17 at 13:30 Glucose (Glutose) 15 gm Q15M PRN PO DECREASED GLUCOSE; Start 07/30/17 at 13:30 Glucose (Glutose) 22.5 gm Q15M PRN PO DECREASED GLUCOSE; Start 07/30/17 at 13: 30 Dextrose (D50w Syringe) 25 ml Q15M PRN IV DECREASED GLUCOSE; Start 07/30/17 at 13:30 Dextrose (D50w Syringe) 50 ml Q15M PRN IV DECREASED GLUCOSE; Start 07/30/17 at 13:30 Glucagon (Glucagen) 1 mg Q15M PRN IM DECREASED GLUCOSE; Start 07/30/17 at 13:30 Glucose 15 gm 15 gm Q15M PRN BUCCAL DECREASED GLUCOSE; Start 07/30/17 at 13:30 Sodium Chloride (NS) 1,000 ml @ 50 mls/hr Q20H IV Last administered on 01:24; Admin Dose 50 MLS/HR; Start 08/01/17 at 23:00 Levofloxacin (Levaquin) 500 mg DAILY@06 PO Last administered on 08/04/17 06: 10; Admin Dose 500 MG; Start 08/02/17 at 06:00 Tramadol HCl (Ultram) 50 mg Q6H PRN PO PAIN Last administered on 08/03/17 23: 48; Admin Dose 50 MG; Start 08/02/17 at 02:00 Tamsulosin HCl (Flomax) 0.4 mg BID PO Last administered on 08/04/17 08:15; Admin Dose 0.4 MG; Start 08/02/17 at 15:00 Potassium Chloride (Klor-Con 20) 40 meq DAILY PO Last administered on 11:26; Admin Dose 40 MEQ; Start 08/04/17 at 10:00 Bethanechol Chloride (Urecholine) 25 mg TID PO Last administered on 08/04/17 12:09; Admin Dose 25 MG; Start 08/04/17 at 13:00 Assessment/Plan Chief Complaint/Hosp Course 71-year-old male underwent lumbar laminectomy 5 days ago. Postop he had urinary retention and when the catheter was removed he had 800 mL inside his bladder. He does have a mild history of lower urinary tract symptoms. His PSA has been normal. Rectal examination revealed soft prostate and mildly enlarged. He was started on tamsulosin 0.4 mg daily and Urecholine 10 mg 3 times a day with the hope that he could urinate . He has been urinating 100- 200 mL each time and the postvoid residual by bladder scan ranged between 235- 360 mL and that is when he was on Urecholine 10 mg 3 times a day and tamsulosin 0.4 mg twice a day Since his postvoid residual still high I did increase his Urecholine from 10 mg 3 times a day to 25 mg 3 times a day and continue to check his postvoid residual and continue the tamsulosin 0.4 mg twice a day Problems: TRISTON HOLLIS MD Aug 04, 2017 13:56
--- NOTE | 2017-08-05 06:57 | DS ---
Date/Time of Note Date/Time of Note DATE: 08/05/17 TIME: 06:57 Discharge Summary Admission/Discharge Info Admit Date/Time Jul 29, 2017 at 05:33 Discharge Date/Time Aug 04, 2017 at 16:15 Discharge Diagnosis Status post lumbar decompression Urinary retention Confusion Hospital Course Patient was admitted to the ICU after undergoing the above surgery. He subsequently transferred to the orthopedic sadler. He had the Green[place] catheter removed and reinserted revealing urinary retention. He had some confusion and medication dosages were decreased. Ultimately he was deemed stable for transfer to acute rehab on August 04. Home Meds Reported Medications Fenofibrate, Micronized* (Antara*) 90 Mg Capsule, 130 MG PO DAILY, CAP 07/29/17 Aspirin* (Aspirin* EC) 81 Mg Tablet.dr, 81 MG PO DAILY, TAB 07/29/17 Pregabalin* (Lyrica*) 100 Mg Capsule, 100 MG PO TID, CAP 07/29/17 Diazepam* (Diazepam*) 10 Mg Tablet, 10 MG PO TID, TAB 07/29/17 Ezetimibe* (Zetia*) 10 Mg Tablet 02/27/10 Metformin* (Glucophage*) 500 Mg Tab, BID 02/27/10 Discontinued Reported Medications [Antara] TAB No Conflict Check 02/27/10 Diazepam* (Diazepam*) 5 Mg Tablet 02/27/10 Gabapentin* (Neurontin*) 600 Mg Tablet 02/27/10 Hydromorphone Hcl* (Hydromorphone Hcl*) 4 Mg Tablet 02/27/10 Primary Care Provider Not On Staff Doctor Pending Labs Laboratory Tests Test 08/04/17 08:17 08/04/17 11:28 Bedside Glucose 85mg/dL (70-220) 117mg/dL (70-220) EVELINA SUTTON MD Aug 05, 2017 06:57
== END 2017-08-04 16:15 | DRG 515 ==
LOC: REC 05:33 → ICU 11:53 → MS1 07-30 15:14
PROVIDERS: ADMIT Specialist; ATTEND Specialist
PROC: 30253H0 (ICD-10-PCS; 2017-07-29)
PROC: 01NB0ZZ Release Lumbar Nerve, Open Approach (ICD-10-PCS; principal; 2017-07-29 07:00)
DX: M48.07 Spinal stenosis, lumbosacral region (principal); G93.40 Encephalopathy, unspecified; N39.0 Urinary tract infection, site not specified; E11.9 Type 2 diabetes mellitus without complications; E78.5 Hyperlipidemia, unspecified; R33.9 Retention of urine, unspecified; Z95.0 Presence of cardiac pacemaker
CPT/HCPCS: 72020; 80048; 80053; 81001; 82040; 82962; 83735; 83880; 84100; 85025; 86850; 86900; 86901; 86920; 86999; 87086; 88304; 88311; 97110; 97116; 97162; 97530; A4310; J0690; J1170; J1644; J1815; J2250; J2405; J2765; J3010; J3475; J3480; J7030

== ENCOUNTER 2017-08-04 14:07 | Inpatient (IN) | payer MEDICARE, BC ==
[~2017-08-04 14:07] MED LIST changes: -ANTARA; +ASPI-664 PO; +DIAZ10TA4 PO; -DIAZ5TAB4; +FENO90CA PO; -GABA600T; -HYDR4TAB; +LYRI100 PO
[2017-08-04 16:30] VITALS: BP 140/72; PULSE 86; RESP 18
[2017-08-04] MEDS ORDERED: ACETAMINOPHEN 325 MG TAB PO PRN ×2 (18:30→18:31)
[2017-08-04] MEDS ORDERED: MAGNESIUM HYDROXIDE 30ML CUP PO PRN (18:30)
[2017-08-04] MEDS ORDERED: BISACODYL 10 MG SUPP PR PRN ×2 (18:30→18:31)
[2017-08-04] MEDS ORDERED: LACTULOSE 30ML CUP PO PRN (18:30)
[2017-08-04] MEDS ORDERED: DEXTROSE 50% 50 ML SYRINGE IV PRN ×2 (18:31)
[2017-08-04] MEDS ORDERED: INSULIN ASPART [NOVOLOG] 3 ML PEN SC SCH (18:31)
[2017-08-04] MEDS ORDERED: GLUCOSE GEL 15 GRAM TUBE BUCCAL PRN (18:31)
[2017-08-04] MEDS ORDERED: GLUCAGON 1 MG INJ IM PRN (18:31)
[2017-08-04] MEDS ORDERED: GLUCOSE GEL 15 GRAM TUBE PO PRN ×2 (18:31)
[2017-08-04] MEDS ORDERED: DIPHENHYDRAMINE 50 MG INJ IV PRN (18:31)
[2017-08-04] MEDS ORDERED: CEPASTAT LOZENGE MT PRN (18:31)
[2017-08-04] MEDS ORDERED: LEVOFLOXACIN 500 MG TAB PO SCH (18:31)
[2017-08-04] MEDS ORDERED: AL HYDROX/MG HYDROX/SIMETH 30 ML CUP PO PRN (18:31)
[2017-08-04 19:18] LABS: ADD UMIC YES; UR ASCORBIC ACID NEGATIVE (NEGATIVE); UR BILIRUBIN (Dip) NEGATIVE (NEGATIVE); UR BLOOD (Dip) 1+ mg/dL (NEGATIVE); UR CLARITY CLEAR (CLEAR); UR COLOR YELLOW (YELLOW); UR GLUCOSE (Dip) NEGATIVE (NEGATIVE); UR KETONES (Dip) NEGATIVE (NEGATIVE); UR LEUKOCYTE ESTERASE (Dip) NEGATIVE Leu/ul (NEGATIVE); UR NITRITE (Dip) NEGATIVE (NEGATIVE); UR RBC 2 /HPF (0-5); UR SPECIFIC GRAVITY (Dip) 1.008 (1.003-1.030); UR TOTAL PROTEIN (Dip) NEGATIVE (NEGATIVE); UR UROBILINOGEN (Dip) NEGATIVE (NEGATIVE)
[2017-08-04 20:00] VITALS: BP 131/68; RESP 18
[2017-08-04] MEDS ORDERED: DOCUSATE SODIUM 100 MG CAP PO SCH (21:00)
[2017-08-04] MEDS: SENNA TAB PO SCH (22:00)
[2017-08-04] MEDS: DOCUSATE SODIUM 100 MG CAP PO SCH (22:00)
[2017-08-04] MEDS: TAMSULOSIN (SR) 0.4 MG CAP PO SCH (22:30)
[2017-08-04] MEDS: BETHANECHOL 10 MG TAB PO SCH (22:30)
[2017-08-04] MEDS: ZOLPIDEM 5 MG TAB PO PRN (22:31)
[2017-08-04] MEDS: PREGABALIN 100 MG CAP PO SCH (22:47)
[2017-08-05 02:00] VITALS: BP 119/64; RESP 18
[2017-08-05] MEDS: ACCU-CHEK XX SCH (02:15)
[2017-08-05 07:01] LABS: BASOPHIL # 0.1 10^3/ul (0.0-0.1); BASOPHILS % 1.7 % (0.0-2.0); EOSINOPHILS # 0.3 10^3/ul (0.0-0.5); EOSINOPHILS % 4.4 % (0.0-7.0); HEMATOCRIT 31.2 % (42.0-52.0); HEMOGLOBIN 10.9 g/dl (14.0-18.0); LYMPHOCYTES # 1.8 10^3/ul (0.8-2.9); LYMPHOCYTES % 24.7 % (15.0-51.0); MEAN CORPUSCULAR HGB CONC 34.9 g/dl (32.0-37.0); MEAN CORPUSCULAR VOLUME 91.5 fl (82.0-101.0); MEAN PLATELET VOLUME 9.7 fl (7.4-10.4); MONOCYTE # 0.6 10^3/ul (0.3-0.9); MONOCYTES % 8.6 % (0.0-11.0); NEUTROPHIL # 4.3 10^3/ul (1.6-7.5); NEUTROPHILS % 59.9 % (39.0-77.0); PLATELET COUNT 545 10^3/UL (140-415); RED BLOOD COUNT 3.41 10^6/ul (4.70-6.10); RED CELL DISTRIBUTION WIDTH 12.9 % (11.5-14.5); WHITE BLOOD COUNT 7.1 10^3/ul (4.8-10.8)
[2017-08-05 07:30] VITALS: BP 153/78; RESP 20
[2017-08-05 07:56] LABS: ALBUMIN 3.4 g/dl (3.3-4.9); ALBUMIN/GLOBULIN RATIO 1.03; BILIRUBIN,INDIRECT 0.3 mg/dl (0-1.1); BILIRUBIN,TOTAL 0.3 mg/dl (0.2-1.3); CALCIUM 9.8 mg/dl (8.4-10.2); CREATININE 0.78 mg/dl (0.61-1.24); POTASSIUM 3.3 mmol/L (3.5-5.1); TOTAL PROTEIN 6.7 g/dl (6.1-8.1)
--- NOTE | 2017-08-05 08:09 | CONS ---
Date/Time of Note Date/Time of Note DATE: 08/05/17 TIME: 08:04 Assessment/Plan Assessment/Plan Additional Assessment/Plan 1. Post op lumbar back surgery. 2. DM, sugar control has been fine, will ac short acting insulin coverage to ac bkfast and dinner. 3. Anemia is stable, will check iron levels 4. Urinary retention is improving, with post void residuals<300, prior urine cult was negative, will dc levaquin if OK with urology 5. Cont PT and OT Consultation Date/Type/Reason Admit Date/Time Aug 04, 2017 at 17:19 Initial Consult Date Detailed Summary Respiratory: No cough, No shortness of breath Cardiovascular: No chest pain, No lightheadedness Gastrointestinal: no complaints Genitourinary: other (he has some urgency and is incontinent at night but denies dysuria) Musculoskeletal: back pain (mild pain) Neurologic: No confusion, No dizziness, No headache Exam/Review of Systems Vital Signs Vitals Vital Signs Date Time Temp Pulse Resp B/P Pulse Ox O2 Delivery O2 Flow Rate FiO2 08/05/17 02:00 98.1 75 18 119/64 94 08/04/17 16:30 Room Air Exam Neck: No jvd Respiratory: clear to auscultation Cardiovascular: regular rate and rhythm Gastrointestinal: soft Extremities: No edema (and no calf tend) Results Result Diagram: 08/05/17 0601 Results 24 hrs Laboratory Tests Test 08/04/17 17:50 08/04/17 17:59 08/04/17 22:42 08/05/17 06:01 Urine Color YELLOW Urine Clarity CLEAR Urine pH 7.0 Urine Specific [place] 1.008 Urine Ketones NEGATIVE Urine Nitrite NEGATIVE Urine Bilirubin NEGATIVE Urine Urobilinogen NEGATIVE Urine Leukocyte Esterase NEGATIVE Urine Microscopic RBC 2 Urine Microscopic WBC 1 Urine Hemoglobin 1+ H Urine Glucose NEGATIVE Urine Total Protein NEGATIVE Bedside Glucose 89 106 White Blood Count 7.1 Red Blood Count 3.41 L Hemoglobin 10.9 L Hematocrit 31.2 L Mean Corpuscular Volume 91.5 Mean Corpuscular Hemoglobin 32.0 Mean Corpuscular Hemoglobin Concent 34.9 Red Cell Distribution Width 12.9 Platelet Count 545 H Mean Platelet Volume 9.7 Neutrophils % 59.9 Lymphocytes % 24.7 Monocytes % 8.6 Eosinophils % 4.4 Basophils % 1.7 Nucleated Red Blood Cells % 0.0 Neutrophils # 4.3 Lymphocytes # 1.8 Monocytes # 0.6 Eosinophils # 0.3 Basophils # 0.1 Nucleated Red Blood Cells # 0.0 Medications Medications Current Medications Senna (Senokot) 1 tab HS PO ; Start 08/04/17 at 21:00 Magnesium Hydroxide (Milk Of Mag) 30 ml BID PRN PO CONSTIPATION; Start at 18:30 Lactulose (Enulose) 20 gm Q24H PRN PO CONSTIPATION; Start 08/04/17 at 18:30 Bisacodyl (Dulcolax Supp) 10 mg DAILY PRN [place] CONSTIPATION; Start 08/04/17 at 18:31 Docusate Sodium (Colace) 100 mg BID PO ; Start 08/04/17 at 18:31 Al Hydrox/Mg Hydrox/Simethicone (Mag-Al Plus) 15 ml Q6H PRN PO CONSTIPATION/ DYSPEPSIA; Start 08/04/17 at 18:31 Acetaminophen (Tylenol Tab) 650 mg Q4H PRN PO WILSON OR TEMP GREATER THAN 101.3F; Start 08/04/17 at 18:31 Phenol (Cepastat Lozenge) 1 lozenge PRN PRN [place] SORE THROAT; Start 08/04/17 at 18:31 Diphenhydramine HCl (Benadryl) 25 mg Q6H PRN IV ITCHING; Start 08/04/17 at 18: 31 Pregabalin (Lyrica) 100 mg TID PO Last administered on 08/04/17t 22:47; Admin Dose 100 MG; Start 08/04/17 at 18:31 EZETIMIBE (Zetia) 10 mg DAILY PO ; Start 08/04/17 at 18:31 Fenofibrate (Tricor) 145 mg DAILY PO ; Start 08/04/17 at 18:31 Diagnostic Test (Pha) (Accu-Chek) 1 ea 02 XX ; Start 08/04/17 at 18:31 Miscellaneous Information 1 ea NOTE XX ; Start 08/04/17 at 18:31 Glucose (Glutose) 15 gm Q15M PRN PO DECREASED GLUCOSE; Start 08/04/17 at 18:31 Glucose (Glutose) 22.5 gm Q15M PRN PO DECREASED GLUCOSE; Start 08/04/17 at 18: 31 Dextrose (D50w Syringe) 25 ml Q15M PRN IV DECREASED GLUCOSE; Start 08/04/17 at 18:31 Dextrose (D50w Syringe) 50 ml Q15M PRN IV DECREASED GLUCOSE; Start 08/04/17 at 18:31 Glucagon (Glucagen) 1 mg Q15M PRN IM DECREASED GLUCOSE; Start 08/04/17 at 18: 31 Glucose (Glutose) 15 gm Q15M PRN BUCCAL DECREASED GLUCOSE; Start 08/04/17 at 18:31 Levofloxacin (Levaquin) 500 mg DAILY@06 PO Last administered on 08/05/17 06: 34; Admin Dose 500 MG; Start 08/04/17 at 18:31 Tramadol HCl (Ultram) 50 mg Q6H PRN PO PAIN; Start 08/04/17 at 18:31 Tamsulosin HCl (Flomax) 0.4 mg BID PO Last administered on 08/04/17 22:30; Admin Dose 0.4 MG; Start 08/04/17 at 18:31 Bethanechol Chloride (Urecholine) 25 mg TID PO Last administered on 08/04/17 22:30; Admin Dose 25 MG; Start 08/04/17 at 18:31 FRANDY PEREYRA MD Aug 05, 2017 08:09
[2017-08-05] MEDS: TAMSULOSIN (SR) 0.4 MG CAP PO SCH ×2 (09:05→20:37)
[2017-08-05] MEDS: metFORMIN 500 MG TAB PO SCH ×2 (09:05→17:05)
[2017-08-05] MEDS: EZETIMIBE 10 MG TAB PO SCH (09:05)
[2017-08-05] MEDS: PREGABALIN 100 MG CAP PO SCH ×3 (09:05→20:36)
[2017-08-05] MEDS: FENOFIBRATE 145 MG TAB PO SCH (09:05)
[2017-08-05] MEDS: DOCUSATE SODIUM 100 MG CAP PO SCH ×2 (09:05→21:00)
[2017-08-05] MEDS: BETHANECHOL 10 MG TAB PO SCH ×3 (09:06→20:37)
[2017-08-05] MEDS: traMADol 50 MG TAB PO PRN (09:06)
[2017-08-05 09:28] LABS: IRON 58 ug/dl (35-150)
[2017-08-05 09:38] LABS: TOTAL IRON BINDING CAPACITY 317 ug/dl (241-421)
[2017-08-05] MEDS ORDERED: HYDROCODONE/APAP (5/325) TAB PO PRN (11:00)
--- NOTE | 2017-08-05 12:09 | CONS ---
DATE OF ADMISSION: 08/04/2017 DATE OF CONSULTATION: 08/05/2017 REHABILITATION POST ADMISSION PHYSICIAN EVALUATION REHABILITATION IMPAIRMENT CATEGORY: Lumbosacral radiculopathy, status post laminectomy. ACTIVE COMORBIDITIES: 1. Acute pain syndrome. 2. Urinary retention. 3. Diabetes mellitus. 4. Hyperlipidemia. 5. Pacemaker. 6. Neuropathy. 7. History of bilateral shoulder surgery. 8. Resolved encephalopathy. 9. Impairments in self-care and mobility. HISTORY OF PRESENT ILLNESS: The patient is a pleasant 71-year-old gentleman with a history of diabetes mellitus, hypertension, osteoarthritis, who had been noting severe radiating back pain despite conservative measures. The patient underwent a decompressive laminectomy on 07/29/2017. His postoperative course has been notable for significant pain, urinary retention, and confusion which has improved. Patient has now been cleared to transfer to the rehabilitation unit for comprehensive interdisciplinary rehab care. FUNCTIONAL HISTORY: Prior to recent events, the patient was independent in self -care tasks and mobility. Currently, the patient requires moderate assist for self-care and mobility tasks. I have reviewed the preadmission screen and patient's current functional status is consistent with the preadmission screen. PAST MEDICAL HISTORY: 1. Diabetes mellitus. 2. Hyperlipidemia. 3. Osteoarthritis with history of bilateral shoulder surgery. 4. Polyneuropathy. 5. History of pacemaker. CURRENT MEDICATIONS: 1. Urecholine 25 mg p.o. t.i.d. 2. Benadryl p.r.n. 3. Colace 100 mg b.i.d. 4. Zetia 10 mg p.o. every day. 5. Tricor 145 mg p.o. every day. 6. Insulin sliding scale. 7. Levaquin 500 mg p.o. every day. 8. Glucophage 500 mg p.o. b.i.d. 9. Lyrica 100 mg p.o. t.i.d. 10. Flomax 0.4 mg p.o. b.i.d. ALLERGIES: THE PATIENT WITH NO KNOWN DRUG ALLERGIES. PHYSICAL EXAMINATION: VITAL SIGNS: The patient is currently afebrile with stable vital signs. HEENT: The extraocular motions are intact. The oropharynx is clear. NECK: Supple. LUNGS: Clear anteriorly. CARDIAC: S1, S2. ABDOMEN: Soft, nontender, positive bowel sounds. NEUROLOGIC: He is awake and alert. He is oriented x3. He will follow simple 1 -step commands. He demonstrates antigravity strength in bilateral upper extremity and lower extremity. He does have impaired dynamic balance. PLAN: The patient has been admitted for comprehensive interdisciplinary acute rehab and is anticipated to tolerate 3 hours of daily therapy in divided doses for at least 5/7 days a week. The treatment plan will include: 1. Physical therapy to focus on bed mobility, transfers, and household ambulation with the goal of having the patient reach a standby assist level. 2. Occupational therapy to focus on hygiene, grooming, dressing, bathing, and toileting activities with the goal of having the patient reach standby assist level. 3. Rehabilitation nursing for carryover of therapeutic interventions, the goal of continent of bowel and bladder, and the goal of pain adequately managed on oral medications. ESTIMATED LENGTH OF STAY: Seven days. DISPOSITION GOAL: Home. rehabilitation Barrier: Pain Intervention for Barrier: Interdisciplinary approach I acknowledge that I performed a full physical examination on this patient within 24 hours of admission to the rehabilitation unit and believe the patient is a good candidate for comprehensive interdisciplinary rehab care and is anticipated to make reasonable goals in a reasonable period of time as outlined above. Dictated By: ALYSSA SCHMITT/DAVID Conf#: [id number] DID#: [id number] DILCIA
--- NOTE | 2017-08-05 13:00 | PN ---
Date/Time of Note Date/Time of Note DATE: 08/05/17 TIME: 12:59 Assessment/Plan Lines/Catheters IV Catheter Type (from Nrsg): Saline Lock Green[place] in Place (from Nrsg): No Assessment/Plan Assessment/Plan Patient is able to urinate. Mental status improved. May discharge from orthopedic standpoint when cleared by Dr. Ordoñez Subjective 24 Hr Interval Summary Feeling better Exam/Review of Systems Vital Signs Vitals Vital Signs Date Time Temp Pulse Resp B/P Pulse Ox O2 Delivery O2 Flow Rate FiO2 08/05/17 07:30 98.2 76 20 153/78 95 08/04/17 16:30 Room Air Exam Free Text/Dictation Neuro remains unchanged Results Result Diagram: 08/05/17 0601 08/05/17 0601 EVELINA SUTTON MD Aug 05, 2017 13:00
[2017-08-05] MEDS: HYDROCODONE/APAP (5/325) TAB PO PRN ×2 (13:37→20:36)
[2017-08-05 14:00] VITALS: BP 129/72; RESP 18
[2017-08-05] MEDS: INSULIN ASPART [NOVOLOG] 3 ML PEN SC SCH (17:05)
[2017-08-05 20:00] VITALS: BP 149/87; RESP 18
--- NOTE | 2017-08-05 20:00 | CONS ---
Date/Time of Note Date/Time of Note DATE: 08/05/17 TIME: 19:54 Consult Date/Type/Reason Admit Date/Time Aug 04, 2017 at 17:19 Initial Consult Date August 04, 2017 Type of Consultation: Urology Reason for Consultation Incomplete bladder emptying and urinary retention Ordering Provider: GONZALO VALLEJO MD Subjective Patient states that he is voiding and is anxious to go home. Objective Vital Signs Date Time Temp Pulse Resp B/P Pulse Ox O2 Delivery O2 Flow Rate FiO2 08/05/17 14:00 97.6 78 18 129/72 95 08/04/17 16:30 Room Air Exam Patient has been voiding 250 mL residual 202 another time 300 voiding and 208 postvoid last time he went to the bathroom and the postvoid residual was 263 mL. He is on tamsulosin and Urecholine. He states that he is comfortable Results/Medications Result Diagram: 08/05/17 0601 08/05/17 0601 Results 24 hrs Laboratory Tests Test 08/04/17 22:42 08/05/17 06:01 08/05/17 06:05 08/05/17 08:35 Bedside Glucose 106 99 White Blood Count 7.1 Red Blood Count 3.41 L Hemoglobin 10.9 L Hematocrit 31.2 L Mean Corpuscular Volume 91.5 Mean Corpuscular Hemoglobin 32.0 Mean Corpuscular Hemoglobin Concent 34.9 Red Cell Distribution Width 12.9 Platelet Count 545 H Mean Platelet Volume 9.7 Neutrophils % 59.9 Lymphocytes % 24.7 Monocytes % 8.6 Eosinophils % 4.4 Basophils % 1.7 Nucleated Red Blood Cells % 0.0 Neutrophils # 4.3 Lymphocytes # 1.8 Monocytes # 0.6 Eosinophils # 0.3 Basophils # 0.1 Nucleated Red Blood Cells # 0.0 Sodium Level 138 Potassium Level 3.3 L Chloride Level 103 Carbon Dioxide Level 26 Anion Gap 12 Blood Urea Nitrogen 12 Creatinine 0.78 Glucose Level 94 Calcium Level 9.8 Total Bilirubin 0.3 Direct Bilirubin 0.00 Indirect Bilirubin 0.3 Aspartate Amino Transf (AST/SGOT) 30 Alanine Aminotransferase (ALT/SGPT) 42 Alkaline Phosphatase 42 Total Protein 6.7 Albumin 3.4 Globulin 3.30 H Albumin/Globulin Ratio 1.03 Iron Level 58 Total Iron Binding Capacity 317 Percent Iron Saturation 18 L Ferritin 203.0 Test 08/05/17 17:27 Bedside Glucose 86 Medications Current Medications Senna (Senokot) 1 tab HS PO ; Start 08/04/17 at 21:00 Magnesium Hydroxide (Milk Of Mag) 30 ml BID PRN PO CONSTIPATION; Start at 18:30 Lactulose (Enulose) 20 gm Q24H PRN PO CONSTIPATION; Start 08/04/17 at 18:30 Bisacodyl (Dulcolax Supp) 10 mg DAILY PRN [place] CONSTIPATION; Start 08/04/17 at 18:31 Docusate Sodium (Colace) 100 mg BID PO Last administered on 08/05/17 09:05; Admin Dose 100 MG; Start 08/04/17 at 18:31 Al Hydrox/Mg Hydrox/Simethicone (Mag-Al Plus) 15 ml Q6H PRN PO CONSTIPATION/ DYSPEPSIA; Start 08/04/17 at 18:31 Acetaminophen (Tylenol Tab) 650 mg Q4H PRN PO WILSON OR TEMP GREATER THAN 101.3F; Start 08/04/17 at 18:31 Phenol (Cepastat Lozenge) 1 lozenge PRN PRN MT SORE THROAT; Start 08/04/17 at 18:31 Diphenhydramine HCl (Benadryl) 25 mg Q6H PRN IV ITCHING; Start 08/04/17 at 18: 31 Pregabalin (Lyrica) 100 mg TID PO Last administered on 08/05/17 13:37; Admin Dose 100 MG; Start 08/04/17 at 18:31 EZETIMIBE (Zetia) 10 mg DAILY PO Last administered on 08/05/17 09:05; Admin Dose 10 MG; Start 08/04/17 at 18:31 Fenofibrate (Tricor) 145 mg DAILY PO Last administered on 08/05/17 09:05; Admin Dose 145 MG; Start 08/04/17 at 18:31 Diagnostic Test (Pha) (Accu-Chek) 1 ea 02 XX ; Start 08/04/17 at 18:31 Miscellaneous Information 1 ea NOTE XX ; Start 08/04/17 at 18:31 Glucose (Glutose) 15 gm Q15M PRN PO DECREASED GLUCOSE; Start 08/04/17 at 18:31 Glucose (Glutose) 22.5 gm Q15M PRN PO DECREASED GLUCOSE; Start 08/04/17 at 18: 31 Dextrose (D50w Syringe) 25 ml Q15M PRN IV DECREASED GLUCOSE; Start 08/04/17 at 18:31 Dextrose (D50w Syringe) 50 ml Q15M PRN IV DECREASED GLUCOSE; Start 08/04/17 at 18:31 Glucagon (Glucagen) 1 mg Q15M PRN IM DECREASED GLUCOSE; Start 08/04/17 at 18: 31 Glucose (Glutose) 15 gm Q15M PRN BUCCAL DECREASED GLUCOSE; Start 08/04/17 at 18:31 Tramadol HCl (Ultram) 50 mg Q6H PRN PO PAIN LEVEL 1-5 Last administered on 09:06; Admin Dose 50 MG; Start 08/04/17 at 18:31 Tamsulosin HCl (Flomax) 0.4 mg BID PO Last administered on 08/05/17 09:05; Admin Dose 0.4 MG; Start 08/04/17 at 18:31 Bethanechol Chloride (Urecholine) 25 mg TID PO Last administered on 08/05/17 13:38; Admin Dose 25 MG; Start 08/04/17 at 18:31 Acetaminophen/ Hydrocodone Bitart ([place] (5/325)) 1 tab Q6H PRN PO PAIN LEVEL 6 -10 Last administered on 08/05/17 13:37; Admin Dose 1 TAB; Start 08/05/17 at 12:00 Assessment/Plan Chief Complaint/Hosp Course 71-year-old male underwent decompressive lumbar laminectomy. He had postop urinary retention. He has a mildly enlarged prostate and has been put on tamsulosin 0.4 mg twice a day. He also has been placed on Urecholine. He has been voiding but keeping a high postvoid residual but that is remaining under 300 mL. Therefore we will continue to monitor him, check his voiding and his postvoid residual and as he gets more active hopefully he will empty his bladder better. Problems: TRISTON HOLLIS MD Aug 05, 2017 20:00
[2017-08-05] MEDS: SENNA TAB PO SCH (21:00)
[2017-08-06] MEDS: ZOLPIDEM 5 MG TAB PO PRN (00:25)
[2017-08-06] MEDS: HYDROCODONE/APAP (5/325) TAB PO PRN ×2 (01:20→08:59)
[2017-08-06 02:00] VITALS: BP 129/68; RESP 18
[2017-08-06] MEDS: ACCU-CHEK XX SCH (02:00)
[2017-08-06] MEDS: INSULIN ASPART [NOVOLOG] 3 ML PEN SC SCH (07:05)
[2017-08-06 08:02] VITALS: BP 137/74; RESP 18
[2017-08-06] MEDS: EZETIMIBE 10 MG TAB PO SCH (08:14)
[2017-08-06] MEDS: PREGABALIN 100 MG CAP PO SCH ×2 (08:14→12:56)
[2017-08-06] MEDS: DOCUSATE SODIUM 100 MG CAP PO SCH (08:14)
[2017-08-06] MEDS: metFORMIN 500 MG TAB PO SCH (08:14)
[2017-08-06] MEDS: BETHANECHOL 10 MG TAB PO SCH ×2 (08:15→12:57)
[2017-08-06] MEDS: TAMSULOSIN (SR) 0.4 MG CAP PO SCH (08:15)
--- NOTE | 2017-08-06 08:37 | CONS ---
Date/Time of Note Date/Time of Note DATE: 08/06/17 TIME: 08:35 Assessment/Plan Assessment/Plan Additional Assessment/Plan 1. Post op lumbar back surgery, doing well 2. Bladder dysfx post op, stable rev with pt need for urology follow up, will check with urology if urecholine is needed. 3. DM, sugars are acceptable. 4. Low K noted yesterday, will recheck today 5. DC per rehab Consultation Date/Type/Reason Admit Date/Time Aug 04, 2017 at 17:19 Type of Consultation: Urology Referring Provider: GONZALO VALLEJO MD Detailed Summary Respiratory: cough, No shortness of breath Cardiovascular: No chest pain, No lightheadedness Gastrointestinal: no complaints Genitourinary: No dysuria, No hematuria Musculoskeletal: back pain (is mild) Exam/Review of Systems Vital Signs Vitals Vital Signs Date Time Temp Pulse Resp B/P Pulse Ox O2 Delivery O2 Flow Rate FiO2 08/06/17 08:02 97.7 82 18 137/74 98 08/04/17 16:30 Room Air Intake and Output 08/05/17 08/05/17 08/06/17 15:00 23:00 07:00 Intake Total 1180 ml 350 ml Output Total 200 ml 540 ml Balance 980 ml -190 ml Exam Neck: No jvd Respiratory: clear to auscultation Cardiovascular: regular rate and rhythm Gastrointestinal: soft Extremities: No edema (and no calf tend) Results Result Diagram: 08/05/17 0601 08/05/17 0601 Results 24 hrs Laboratory Tests Test 08/05/17 17:27 08/05/17 21:08 08/06/17 08:11 Bedside Glucose 86 114 100 Medications Medications Current Medications Senna (Senokot) 1 tab HS PO ; Start 08/04/17 at 21:00 Magnesium Hydroxide (Milk Of Mag) 30 ml BID PRN PO CONSTIPATION; Start at 18:30 Lactulose (Enulose) 20 gm Q24H PRN PO CONSTIPATION; Start 08/04/17 at 18:30 Bisacodyl (Dulcolax Supp) 10 mg DAILY PRN [place] CONSTIPATION; Start 08/04/17 at 18:31 Docusate Sodium (Colace) 100 mg BID PO Last administered on 08/06/17t 08:14; Admin Dose 100 MG; Start 08/04/17 at 18:31 Al Hydrox/Mg Hydrox/Simethicone (Mag-Al Plus) 15 ml Q6H PRN PO CONSTIPATION/ DYSPEPSIA; Start 08/04/17 at 18:31 Acetaminophen (Tylenol Tab) 650 mg Q4H PRN PO WILSON OR TEMP GREATER THAN 101.3F; Start 08/04/17 at 18:31 Phenol (Cepastat Lozenge) 1 lozenge PRN PRN [place] SORE THROAT; Start 08/04/17 at 18:31 Diphenhydramine HCl (Benadryl) 25 mg Q6H PRN IV ITCHING; Start 08/04/17 at 18: 31 Pregabalin (Lyrica) 100 mg TID PO Last administered on 08/06/17 08:14; Admin Dose 100 MG; Start 08/04/17 at 18:31 EZETIMIBE (Zetia) 10 mg DAILY PO Last administered on 08/06/17 08:14; Admin Dose 10 MG; Start 08/04/17 at 18:31 Fenofibrate (Tricor) 145 mg DAILY PO Last administered on 08/05/17 09:05; Admin Dose 145 MG; Start 08/04/17 at 18:31 Diagnostic Test (Pha) (Accu-Chek) 1 ea 02 XX ; Start 08/04/17 at 18:31 Miscellaneous Information 1 ea NOTE XX ; Start 08/04/17 at 18:31 Glucose (Glutose) 15 gm Q15M PRN PO DECREASED GLUCOSE; Start 08/04/17 at 18:31 Glucose (Glutose) 22.5 gm Q15M PRN PO DECREASED GLUCOSE; Start 08/04/17 at 18: 31 Dextrose (D50w Syringe) 25 ml Q15M PRN IV DECREASED GLUCOSE; Start 08/04/17 at 18:31 Dextrose (D50w Syringe) 50 ml Q15M PRN IV DECREASED GLUCOSE; Start 08/04/17 at 18:31 Glucagon (Glucagen) 1 mg Q15M PRN IM DECREASED GLUCOSE; Start 08/04/17 at 18: 31 Glucose (Glutose) 15 gm Q15M PRN BUCCAL DECREASED GLUCOSE; Start 08/04/17 at 18:31 Tramadol HCl (Ultram) 50 mg Q6H PRN PO PAIN LEVEL 1-5 Last administered on 09:06; Admin Dose 50 MG; Start 08/04/17 at 18:31 Tamsulosin HCl (Flomax) 0.4 mg BID PO Last administered on 08/06/17 08:15; Admin Dose 0.4 MG; Start 08/04/17 at 18:31 Bethanechol Chloride (Urecholine) 25 mg TID PO Last administered on 08/06/17 08:15; Admin Dose 25 MG; Start 08/04/17 at 18:31 Acetaminophen/ Hydrocodone Bitart ([place] (5/325)) 1 tab Q6H PRN PO PAIN LEVEL 6 -10 Last administered on 08/06/17 01:20; Admin Dose 1 TAB; Start 08/05/17 at 12:00 FRANDY PEREYRA MD Aug 06, 2017 08:37
[2017-08-06] MEDS: FENOFIBRATE 145 MG TAB PO SCH (08:59)
[2017-08-06 09:34] LABS: BASOPHIL # 0.1 10^3/ul (0.0-0.1); BASOPHILS % 1.8 % (0.0-2.0); EOSINOPHILS # 0.4 10^3/ul (0.0-0.5); EOSINOPHILS % 5.4 % (0.0-7.0); LYMPHOCYTES # 2.1 10^3/ul (0.8-2.9); LYMPHOCYTES % 28.4 % (15.0-51.0); MEAN CORPUSCULAR HEMOGLOBIN 31.5 pg (29.0-33.0); MEAN CORPUSCULAR HGB CONC 34.3 g/dl (32.0-37.0); MEAN CORPUSCULAR VOLUME 91.9 fl (82.0-101.0); MEAN PLATELET VOLUME 9.4 fl (7.4-10.4); MONOCYTE # 0.6 10^3/ul (0.3-0.9); MONOCYTES % 7.7 % (0.0-11.0); NEUTROPHIL # 4.1 10^3/ul (1.6-7.5); PLATELET COUNT 749 10^3/UL (140-415); RED BLOOD COUNT 3.81 10^6/ul (4.70-6.10); RED CELL DISTRIBUTION WIDTH 12.8 % (11.5-14.5); WHITE BLOOD COUNT 7.2 10^3/ul (4.8-10.8)
[2017-08-06 10:02] LABS: CREATININE 0.77 mg/dl (0.61-1.24); POTASSIUM 4.1 mmol/L (3.5-5.1)
[2017-08-06 10:35] LABS: MAGNESIUM 1.9 mg/dl (1.7-2.5)
--- NOTE | 2017-08-06 12:26 | DS ---
Date/Time of Note Date/Time of Note DATE: 08/06/17 TIME: 12:24 Discharge Summary Admission/Discharge Info Admit Date/Time Aug 04, 2017 at 17:19 Discharge Date/Time Discharge Diagnosis 1. Lumbosacral radiculopathy, status post laminectomy. 2. Urinary retention, improving 3. Diabetes mellitus. 4. Hyperlipidemia. 5. Pacemaker. 6. Neuropathy. 7. History of bilateral shoulder surgery. 8. Resolved encephalopathy. 9. Improvements in self-care and mobility. Patient Condition: Good Hospital Course Patient was admitted for comprehensive interdisciplinary acute rehabilitation. Patient made functional gains and improved from a min level to a Supervised/SBA level for self care and mobility, including ambulating over 150 feet with the use of a front wheeled walker. He was quite anxious to return home. He is noted to have urinary retention, but is voiding. He will follow up with urology , PMD and Spine MD upon dc Patient is being discharged home with recommendations for home health PT and OT follow up. DME recommendations: FWW; BSC; Shower Chair Home Meds Reported Medications Fenofibrate, Micronized* (Antara*) 90 Mg Capsule, 130 MG PO DAILY, CAP 07/29/17 Aspirin* (Aspirin* EC) 81 Mg Tablet.dr, 81 MG PO DAILY, TAB 07/29/17 Pregabalin* (Lyrica*) 100 Mg Capsule, 100 MG PO TID, CAP 07/29/17 Diazepam* (Diazepam*) 10 Mg Tablet, 10 MG PO TID, TAB 07/29/17 Ezetimibe* (Zetia*) 10 Mg Tablet 02/27/10 Metformin* (Glucophage*) 500 Mg Tab, BID 02/27/10 Primary Care Provider Not On Staff Doctor Pending Labs Laboratory Tests Test 08/05/17 17:27 08/05/17 21:08 08/06/17 08:11 08/06/17 08:50 Bedside Glucose 86mg/dL (70-220) 114mg/dL (70-220) 100mg/dL (70-220) White Blood Count 7.210^3/ul (4.8-10.8) Red Blood Count 3.8110^6/ul (4.70-6.10) Hemoglobin 12.0g/dl (14.0-18.0) Hematocrit 35.0% (42.0-52.0) Mean Corpuscular Volume 91.9fl (82.0-101.0) Mean Corpuscular Hemoglobin 31.5pg (29.0-33.0) Mean Corpuscular Hemoglobin Concent 34.3g/dl (32.0-37.0) Red Cell Distribution Width 12.8% (11.5-14.5) Platelet Count 17667^3/UL (140-415) Mean Platelet Volume 9.4fl (7.4-10.4) Neutrophils % 56.0% (39.0-77.0) Lymphocytes % 28.4% (15.0-51.0) Monocytes % 7.7% (0.0-11.0) Eosinophils % 5.4% (0.0-7.0) Basophils % 1.8% (0.0-2.0) Nucleated Red Blood Cells % 0.0/100WBC (0.0-0.0) Neutrophils # 4.110^3/ul (1.6-7.5) Lymphocytes # 2.110^3/ul (0.8-2.9) Monocytes # 0.610^3/ul (0.3-0.9) Eosinophils # 0.410^3/ul (0.0-0.5) Basophils # 0.110^3/ul (0.0-0.1) Nucleated Red Blood Cells # 0.010^3/ul (0.0-0.0) Sodium Level 139mmol/L (135-144) Potassium Level 4.1mmol/L (3.5-5.1) Chloride Level 99mmol/L (97-110) Carbon Dioxide Level 28mmol/L (21-31) Anion Gap 16 (8-16) Blood Urea Nitrogen 10mg/dl (7-20) Creatinine 0.77mg/dl (0.61-1.24) Glucose Level 113mg/dl (70-220) Calcium Level 10.0mg/dl (8.4-10.2) Magnesium Level 1.9mg/dl (1.7-2.5) Prostate Specific Antigen 7.0ng/ml (0.0-4.0) ALYSSA TEJADA MD Aug 06, 2017 12:26
[2017-08-06] MEDS: traMADol 50 MG TAB PO PRN (12:56)
== END 2017-08-06 14:15 | disposition home health service (06) | DRG 561 ==
LOC: VRC 17:19
PROVIDERS: ADMIT Internal Medicine; ATTEND Internal Medicine
PROC: F07Z9FZ Gait Training/Functional Ambulation Treatment using Assistive, Adaptive, Supportive or Protective Equipment (ICD-10-PCS; principal; 2017-08-04)
PROC: F07Z8FZ Transfer Training Treatment using Assistive, Adaptive, Supportive or Protective Equipment (ICD-10-PCS; 2017-08-04)
PROC: F07Z5FZ Bed Mobility Treatment using Assistive, Adaptive, Supportive or Protective Equipment (ICD-10-PCS; 2017-08-04)
PROC: F08Z2FZ Grooming/Personal Hygiene Treatment using Assistive, Adaptive, Supportive or Protective Equipment (ICD-10-PCS; 2017-08-04)
PROC: F08Z0FZ Bathing/Showering Techniques Treatment using Assistive, Adaptive, Supportive or Protective Equipment (ICD-10-PCS; 2017-08-04)
PROC: F08Z1FZ Dressing Techniques Treatment using Assistive, Adaptive, Supportive or Protective Equipment (ICD-10-PCS; 2017-08-04)
DX: Z47.89 Encounter for other orthopedic aftercare (principal); G62.9 Polyneuropathy, unspecified; E11.9 Type 2 diabetes mellitus without complications; D64.9 Anemia, unspecified; E78.5 Hyperlipidemia, unspecified; E87.6 Hypokalemia; M54.17 Radiculopathy, lumbosacral region; R33.9 Retention of urine, unspecified; Z95.0 Presence of cardiac pacemaker
CPT/HCPCS: 80048; 80053; 81001; 82728; 82962; 83540; 83735; 84153; 84154; 85025; 87081; 87086; 97110; 97116; 97163; 97530; 97535; J1815